=== PATIENT | female | born 1950 | race Caucasian/White ===

== ENCOUNTER 2019-05-17 13:13 | Emergency (ER) | payer MEDICARE, MEDICAID, SELFPAY ==
[2019-05-17 13:29] VITALS: BP 144/72; PULSE 80; RESP 20; TEMP 37.5; O2SAT 97
--- NOTE | 2019-05-17 13:39 | ED.GENADULT ---
HPI - General Adult General Chief complaint: Urogenital-Female Stated complaint: POS UTI Time Seen by Provider: 05/17/19 13:39 Source: patient and RN notes reviewed Mode of arrival: ambulatory Limitations: no limitations History of Present Illness HPI narrative: 68-year-old female presents with urinary complaints with intermittent RT lower back pain that radiates into RT lower abdomen for 1 day. Dysuria burning, frequency, and urgency.? No treatment.? Denies fever or chills.? Denies nausea, vomiting, and abdominal pain.? No significant pelvic pain.? No vaginal discharge.? No concerns for STDs.? Postmenopausal.? No flank pain.? Exacerbating factors urinating.? Denies hematuria or vaginal bleeding.? Tolerating liquids well.? Remains active. Some parts of this dictation were generated by voice recognition software and may contain typographical and/or grammatical inaccuracies. Related Data Home Medications Medication Instructions Recorded Confirmed escitalopram oxalate 10 mg PO DAILY 05/17/19 05/17/19 ezetimibe 10 mg PO DAILY 05/17/19 05/17/19 meloxicam 7.5 mg PO BID 05/17/19 05/17/19 omeprazole 20 mg PO DAILY 05/17/19 05/17/19 Allergies Allergy/AdvReac Type Severity Reaction Status Date / Time amoxicillin Allergy Unknown Anaphylactic Verified 05/17/19 13:47 Shock Review of Systems Review of Systems: Narrative: CONSTITUTIONAL: Denies fever, chills, sweats. EYES: Denies visual changes, redness, discharge. ENT: Denies rhinorrhea, congestion, sore throat, otalgia. CARDIOVASCULAR: Denies chest pain, palpitations, edema. RESPIRATORY: Denies dyspnea, wheezing, cough. GASTROINTESTINAL: Intermittent RT lower abdominal pain. Denies nausea, vomiting, diarrhea. GENITOURINARY: Complains of dysuria (burning, frequency, and urgency). Denies hematuria, abnormal discharge. SKIN: Denies rash or itching. MUSCULOSKELETAL: Complains of Intermittent RT lower back. Denies joint pain, or myalgia. NEUROLOGIC: Denies numbness or focal weakness. PSYCHIATRIC: Denies anxiety or depression. [facility] Past Medical History Medical History (Updated 05/17/19 @ 14:04 by BETHANY Ace) Arthritis Depression History of gastroesophageal reflux (GERD) Hyperlipidemia Surgical History Surgical History (Updated 05/17/19 @ 14:06 by BETHANY Ace) History of cholecystectomy Comments At time of signature, agree with nurse past medical, surgical, social, and family history.? There is no relevant family history pertinent to the presenting complaint. Exam Narrative: Exam Narrative: GENERAL: This is a well-nourished, well-developed patient, in no apparent distress.? Talks in full sentences and ambulates with steady gait without dyspnea. HEAD: normocephalic, atraumatic. EYES: PERRL. Sclera clear/white. Vision is grossly intact. CARDIOVASCULAR: Regular rate and rhythm without murmurs, gallops, or rubs. RESPIRATORY: Clear to auscultation. Breath sounds equal bilaterally. No wheezes, rales, or rhonchi.? GASTROINTESTINAL: Abdomen soft, no significant abdominal tenderness, nondistended. Bowel sounds are active. No hepato-splenomegaly, or palpable masses. No guarding. SKIN: warm, intact with no suspicious lesions or rash, No Purpura or Ecchymosis, good texture and turgor. NEURO: awake, alert, and oriented to person, place and time. There were no obvious focal neurologic abnormalities.? EXTREMITIES: No clubbing, cyanosis, or edema. BACK: Nontender without deformity or crepitance. Mild RT flank tenderness with palpitation. [place] Coma Scale Eye Opening:? Spontaneous 4 Adrian Coma Scale Motor:? Obeys Commands 6 Adrian Coma Scale Verbal:? Oriented 5 Course Vital Signs Vital signs: Vital Signs Temperature 37.5 C 05/17/19 13:29 Pulse Rate 80 05/17/19 13:29 Respiratory Rate 20 05/17/19 13:29 Blood Pressure 144/72 H 05/17/19 13:29 Pulse Oximetry 97 05/17/19 13:29 Temperature 37.5 C 05/17/19 13:29 Pulse Rate 80
== END 2019-05-17 13:57 | disposition home or self-care (01) ==
PROVIDERS: Emergency Provider Nurse Practitioner Family; PCP Nurse Practitioner Family
DX: R30.0 Dysuria (principal); M19.90 Unspecified osteoarthritis, unspecified site; F32.9 Major depressive disorder, single episode, unspecified; K21.9 Gastro-esophageal reflux disease without esophagitis; E78.5 Hyperlipidemia, unspecified; E78.00 Pure hypercholesterolemia, unspecified
CPT/HCPCS: 81003; 87086; 99213; G0463

== ENCOUNTER 2019-09-18 11:48 | Outpatient (CLI) | payer MEDICARE, MEDICAID, SELFPAY ==
--- NOTE | ~2019-09-18 | XR_ITS ---
XR lumbar spine 2-3V DATE: 09/18/2019 12:25 INDICATION: Low back pain, left knee pain TECHNIQUE: AP, lateral, coned lateral lumbosacral views COMPARISON: None FINDINGS: There is severe degenerative disc disease at L1-2. There is moderate degenerative disc dise ase at L5-S1. There is grade 1 anterolisthesis at L3-4. No fracture or bone destruction is evident. Included lower thoracic and lumbar pedicles are intact. There is levoscoliosis of the thoracolumbar spine. The sacroiliac joints are intact. Abdominal aortic and iliac artery calcifications Status post cholecystectomy. IMPRESSION: Degenerative change including severe degenerative disc disease at L1-2 in particular Grade 1 anterolisthesis at L3-4 Reviewed, dictated and finalized at location A. IMPRESSION: Degenerative change including severe degenerative disc disease at L 1-2 in particular Grade 1 anterolisthesis at L3-4
--- NOTE | ~2019-09-18 | XR_ITS ---
EXAMINATION: XR hip LT min 2V DATE: 09/18/2019 12:25 INDICATION: Left hip pain. TECHNIQUE: 3 views of left hip were obtained. COMPARISON: None. FINDINGS: There is levocurvature of lumbar spine. No fracture. Left hip joint space is normal. IMPRESSION: 1. Normal left hip. Reviewed, dictated and finalized at location A. IMPRESSION: 1. Normal left hip.
--- NOTE | ~2019-09-18 | XR_ITS ---
EXAMINATION: XR knee LT min 4V DATE: 09/18/2019 12:25 INDICATION: Left knee pain. TECHNIQUE: 4 views of left knee were obtained. COMPARISON: Left knee radiographs 10/25/2014 FINDINGS: Bone alignment is normal. No fracture. There is mild tricompartmental osteoarthritis. There is a small knee joint effusion. There is a 7 mm loose body in the knee joint posteriorly. IMPRESSION: 1. Mild left knee osteoarthritis. 2. Small left knee joint effusion with loose body. Reviewed, dictated and finalized at location A.
== END 2019-09-18 11:49 | disposition home or self-care (01) ==
PROVIDERS: PCP Nurse Practitioner Family; Visit Provider Nurse Practitioner Family
DX: M17.12 Unilateral primary osteoarthritis, left knee (principal); Z90.49 Acquired absence of other specified parts of digestive tract; M25.462 Effusion, left knee
CPT/HCPCS: 72100; 73502; 73564

== ENCOUNTER 2020-10-12 12:45 | Emergency (ER) | payer MEDICARE, MEDICAID, SELFPAY ==
--- NOTE | 2020-10-12 13:07 | PC.NURSE ---
Patient walked out of ED without difficulty reports that she can just come back later.
== END 2020-10-13 04:42 | disposition left against medical advice (07) ==
PROVIDERS: PCP Nurse Practitioner Family
DX: Z53.21 Procedure and treatment not carried out due to patient leaving prior to being seen by health care provider (principal)
CPT/HCPCS: 99199

== ENCOUNTER 2020-10-12 13:22 | Emergency (ER) | payer MEDICARE, MEDICAID, SELFPAY ==
[2020-10-12 13:35] VITALS: BP 151/64; PULSE 66; RESP 17; TEMP 37; O2SAT 96
--- NOTE | 2020-10-12 13:36 | ED.FEMALEGU ---
HPI - Female Genitourinary General Chief complaint: Urogenital-Female Stated complaint: uti Time Seen by Provider: 10/12/20 13:36 Source: patient Mode of arrival: ambulatory History of Present Illness HPI Narrative: Patient presents with burning with urination and low back pain for the past 4 days. Patient was started on Septra for UTI yesterday by her primary care provider. Patient presents today because she woke up with joint pain. Patient denies any fever no abdominal pain no back pain no gross hematuria no flank pain. Patient states she mowed the yard last week but has not done any new activities or any new workout routines. Patient denies any falls. Patient states she did take a niacin for the first time last night and wonders if the symptoms are related to niacin. Patient denies any shortness of breath and no chest pain. Patient states she does have arthritis and wonders if she triggered her arthritis when she mowed the grass. Related Data Home Medications Medication Instructions Recorded Confirmed escitalopram oxalate 10 mg PO DAILY 05/17/19 05/17/19 ezetimibe 10 mg PO DAILY 05/17/19 05/17/19 omeprazole 20 mg PO DAILY 05/17/19 05/17/19 propranolol 20 mg PO DAILY 10/12/20 10/12/20 Allergies Allergy/AdvReac Type Severity Reaction Status Date / Time amoxicillin Allergy Severe Anaphylactic Verified 10/12/20 13:43 Shock Review of Systems Review of Systems: Narrative: CONSTITUTIONAL: Denies fever, chills, or sweats. EYES: Denies visual changes, redness, or discharge. ENT: Denies rhinorrhea, congestion, sore throat, or otalgia. CARDIOVASCULAR: Denies chest pain, palpitations, or edema. RESPIRATORY: Denies cough or dyspnea. GASTROINTESTINAL: Denies abdominal pain, nausea, vomiting, or diarrhea. GENITOURINARY: Denies dysuria or hematuria. SKIN: Denies rash or itching. MUSCULOSKELETAL: Denies back pain, joint pain, or myalgia. NEUROLOGIC: Denies headache, numbness, or weakness. PSYCHIATRIC: Denies anxiety or depression. [facility] Past Medical History Medical History (Updated 10/12/20 @ 14:07 by BETHANY [place]) Arthritis Depression History of gastroesophageal reflux (GERD) Hyperlipidemia Surgical History Surgical History (Updated 05/17/19 @ 14:06 by BETHANY Ace) History of cholecystectomy Social History Social History Gender identity (if verbalized by the patient): Female Comments At time of signature, agree with nursing past medical, surgical, social and family history. There is no relevant family history pertinent to the presenting complaint Exam Narrative: Exam Narrative: GENERAL: Well-appearing, well-nourished, and in no acute distress. HEAD: Normocephalic, atraumatic. EYES: PERRLA and EOMI. ENT: Nares clear, no rhinorrhea or epistaxis. Mucous membranes moist. NECK: Supple. CHEST: Clear to auscultation. No respiratory distress. HEART: Regular rate and rhythm. No murmur heard. Normal peripheral pulses. ABDOMEN: Soft, nontender, nondistended, normal active bowel sounds. EXTREMITIES: Normal range of motion. No edema. SKIN: Warm, dry, no rash. NEURO: No focal deficits. Alert and oriented x3. SPEECH IS CLEAR. NO LANGUAGE DEFICITS. CRANIAL NERVES: PUPILS EQUAL, ROUND, AND REACTIVE TO LIGHT. VISUAL GUNDERSON FULL. EXTRA-OCULAR MOVEMENTS INTACT. NO NYSTAGMUS NOTED. FACIAL SENSATION INTACT TO LIGHT TOUCH. FACIAL MOVEMENT FULL AND SYMMETRIC. PALATE MIDLINE. TONGUE MIDLINE, MOVING EQUALLY IN BOTH DIRECTIONS. UVULA IS MIDLINE. SHOULDER SHRUG EQUAL ON BOTH SIDES. BILATERAL HAND GRASP 5/5. GAIT NORMAL. HEEL TO TOE AND TANDEM WALK NORMAL. FINGER TO NOSE NORMAL. NEG ROMBERG. Adrian Coma Scale Eye Opening: Spontaneous 4 [place] Coma Scale Motor: Obeys Commands 6 [place] Coma Scale Verbal: Oriented 5 [place] Coma Scale Total 15 Course Vital Signs Vital signs: Vital Signs Temperature 37.0 C 10/12/20 13:35 Pulse Rate 66 10/12/20 13:35 Respiratory Rate 17 10/12/20 13:35 Bloo
== END 2020-10-12 14:20 | disposition home or self-care (01) ==
PROVIDERS: Emergency Provider Nurse Practitioner Family; PCP Nurse Practitioner Family
DX: N39.0 Urinary tract infection, site not specified (principal); M19.90 Unspecified osteoarthritis, unspecified site; K21.9 Gastro-esophageal reflux disease without esophagitis; R78.5 Finding of other psychotropic drug in blood; F32.9 Major depressive disorder, single episode, unspecified
CPT/HCPCS: 81003; 87086; 99213; G0463

== ENCOUNTER 2020-10-15 13:56 | Outpatient (CLI) | payer MEDICARE, MEDICAID, SELFPAY ==
--- NOTE | 2020-10-15 | ECHO_ITS ---
Patient Info Name: Belkis Bradshaw Age: 70 years : 1950 Gender: Female Ht: 64 in Wt: 178 lbs BSA: 1.94 m2 BP: 158 / 83 mmHg Heart Rhythm: Bradycardia, Sinus Rhythm Technical Quality: Good Exam Date: 10/15/2020 2:25 PM Exam Location: [facility] Pulmonary Patient Status: Outpatient Admit Date: 10/15/2020 Staff Ordering Physician: Alyx, Tiki FRANKLIN Surety Bond Agent: Ced Perdomo RDCS, RT Attending Provider: Alyx, Tiki FRANKLIN Referring Physician: Alyx BAIRES; Exam Type: CA echo doppler color flow Study Info Indications R01.1 - Cardiac murmur, unspecified Complete two-dimensional, color flow and Doppler transthoracic echocardiogram is performed. Strain analysis performed. Summary 1. Complete two-dimensional, color flow and Doppler transthoracic echocardiogram is performed. 2. There is no aortic valve stenosis with a peak velocity of 171 cm/s, mean gradient of 6 mmHg, and aortic valve area of 2.1 cm2. 3. Left ventricular chamber dimension is normal. 4. Left ventricular systolic function is normal, estimated at 65-70%. 5. There is mildly increased left ventricular wall thickness. 6. The left ventricular diastolic function is grade I diastolic dysfunction. 7. There is mild aortic valve regurgitation. 8. Unable to estimate PA systolic pressure due to poor spectral resolution of tricuspid regurgitant jet velocity. Left Ventricle Left ventricular chamber dimension is normal. Left ventricular systolic function is normal, estimated at 65-70%. There is mildly increased left ventricular wall thickness. The left ventricular diastolic function is grade I diastolic dysfunction. Right Ventricle Right ventricular chamber dimension is normal. Right ventricular systolic function is normal. Left Atria Left atrial chamber dimension is normal. Right Atria Right atrial chamber dimension is normal. Atrial Septum Thin and hypermobile. Aortic Valve There is no aortic valve stenosis with a peak velocity of 171 cm/s, mean gradient of 6 mmHg, and aortic valve area of 2.1 cm2. The aortic valve is trileaflet. There is no aortic valve stenosis. There is mild aortic valve regurgitation. There is mild aortic valve calcification. Pulmonic Valve The pulmonic valve is not well visualized. Mitral Valve The mitral valve has normal leaflets. There is trace mitral valve regurgitation. The mitral valve annulus is mildly calcified. Tricuspid Valve The tricuspid valve leaflets are normal. There is trace tricuspid valve regurgitation. Unable to estimate PA systolic pressure due to poor spectral resolution of tricuspid regurgitant jet velocity. Pericardium/Pleural The pericardium appears normal. There is no pericardial effusion. Inferior Vena Cava Normal inferior vena cava with >50% collapse upon inspiration consistent with normal right atrial pressure, 5 mmHg. Aorta The aortic root size at the sinus of Valsalva is normal. Left Ventricular Outflow Tract Name Value Normal LVOT 2D LVOT Diameter 2.0 cm LVOT Doppler LVOT Peak Gradient 4 mmHg LVOT Mean Gradient
== END 2020-10-15 13:57 | disposition home or self-care (01) ==
PROVIDERS: PCP Nurse Practitioner Family; Visit Provider Nurse Practitioner Family
DX: R01.1 Cardiac murmur, unspecified (principal); I35.1 Nonrheumatic aortic (valve) insufficiency
CPT/HCPCS: 93306

== ENCOUNTER → 2020-11-08 17:21 | Outpatient (CLI) | payer MEDICARE, MEDICAID, SELFPAY ==
--- NOTE | ~2020-11-08 | MM_ITS ---
EXAMINATION: MM screening [place] BI w natalie HISTORY: Screening mammogram TECHNIQUE: Craniocaudal and mediolateral oblique 3-D tomosynthesis images were obtained and synthetic 2-D images were generated. CAD analysis was submitted and interpreted. COMPARISON: 11/05/2014 bilateral digital screening mammogram BREAST PARENCHYMAL COMPOSITION: There are scattered areas of fibroglandular density. FINDINGS: Scattered bilateral benign calcifications. There is no evidence of suspicious mass, calcifi cation, or architectural distortion to suggest malignancy in either breast. There has been no suspici ous interval change. IMPRESSION: 1. No mammographic evidence of malignancy. 2. Recommend routine screening mammography in one year. BI-RADS Category 2: Benign finding(s). Reviewed, dictated and finalized at location A.
== END ==
PROVIDERS: PCP Nurse Practitioner Family; Visit Provider Nurse Practitioner Family
DX: Z12.31 Encounter for screening mammogram for malignant neoplasm of breast (principal)
CPT/HCPCS: 77063; 77067

== ENCOUNTER 2021-08-15 18:40 | Emergency (ER) | payer OTHER, SELFPAY ==
[2021-08-15 18:59] VITALS: BP 116/76; PULSE 78; RESP 17; TEMP 37.2; O2SAT 96
--- NOTE | 2021-08-15 19:25 | ED.FEMALEGU ---
HPI - Female Genitourinary General Chief complaint: Urogenital-Female Stated complaint: uti complaint Source: patient Mode of arrival: ambulatory Limitations: no limitations History of Present Illness HPI Narrative: 70-year-old female presents to [facility] with complaints of urinary incontinence, urinary frequency, urgency, pain and burning with lower abdominal pressure for the past 3 to 4 days. Patient reports that she has a history of urinary tract infection and her symptoms feel similar. Patient denies fevers, vaginal discharge, nasuea, vomiting or diarrhea MD elicited complaint: dysuria and UTI Onset (ago): day(s) (3) Vaginal discharge: none Vaginal bleeding: none Urinary symptoms: Dysuria, Urgency and Frequency Exacerbating factors: none Relieving factors: none Patient : No Related Data Home Medications Medication Instructions Recorded Confirmed carbidopa-levodopa tablet 08/15/21 escitalopram oxalate mg 08/15/21 ezetimibe mg 08/15/21 omeprazole 08/15/21 propranolol 08/15/21 Allergies Allergy/AdvReac Type Severity Reaction Status Date / Time amoxicillin Allergy Severe Anaphylactic Verified 10/12/20 13:43 Shock sulfamethoxazole Allergy Unknown Verified 08/15/21 19:13 [From Bactrim] trimethoprim [From Bactrim] Allergy Unknown Verified 08/15/21 19:13 Review of Systems Constitutional: Constitutional: Denies chills Cardiovascular: Cardiovascular: Denies chest pain Respiratory: Respiratory: Denies cough and Denies dyspnea Gastrointestinal: Gastrointestinal: Denies constipation, Denies diarrhea, Denies nausea and Denies vomiting Genitourinary: Genitourinary: Reports nocturia, Reports dysuria and Reports urinary incontinence Integumentary/Breasts: Skin/Breast: Denies rash PMFSH Past Medical History Medical History Arthritis Depression History of gastroesophageal reflux (GERD) Hyperlipidemia Surgical History Surgical History History of cholecystectomy Social History Social History Gender identity (if verbalized by the patient): Female Comments At time of signature, I agree with nursing past medical, surgical, social and family history. There is no relevant family history pertinent to the presenting complaint. Exam Const: General: no acute distress Nutritional Appearance: well nourished Orientation/consciousness: patient oriented x3 Neck: Neck: normal visual inspection Resp: Effort & Inspection: normal respiratory effort, not labored and not tachypneic Auscultation: clear to auscultation bilaterally Cardio: Rate: regular rate Rhythm: regular rhythm GI: Inspection: non-distended GI Palp: Yes Soft to palpation, Yes Tenderness to palpation present (GI) (Mild tenderness noted to suprapubic region upon palpation) and No Rigid due to palpation Auscultation: normal bowel sounds : General: Yes bladder normal to palpation and Yes no CVA tenderness Back/Spine/Pelvis: Back: no CVA tenderness Skin: Rashes: no rashes Wounds: no wounds Neuro: General: patient oriented x3 and moves all extremities Speech: normal speech Psych: Mental Status: mental status grossly normal Affect: normal affect Attitude: cooperative Thought content: Yes Normal thought content present Course Course Level of Care: Express Care Visit Vital Signs Vital signs: Vital Signs Temperature 37.2 C 08/15/21 18:59 Pulse Rate 78 08/15/21 18:59 Respiratory Rate 17 08/15/21 18:59 Blood Pressure 116/76 08/15/21 18:59 Pulse Oximetry 96 08/15/21 18:59 Temperature 37.2 C 08/15/21 18:59 Pulse Rate 78 08/15/21 18:59 Respiratory Rate 17 08/15/21 18:59 Blood Pressure 116/76 08/15/21 18:59 Pulse Oximetry 96 08/15/21 18:59 MDM - Female Genitourinary MDM Narrative Medical decision making narrati
== END 2021-08-15 19:34 | disposition home or self-care (01) ==
PROVIDERS: Emergency Provider Nurse Practitioner Family; PCP Nurse Practitioner Family
DX: N39.0 Urinary tract infection, site not specified (principal); E78.5 Hyperlipidemia, unspecified; K21.9 Gastro-esophageal reflux disease without esophagitis
CPT/HCPCS: 81003; 87086; 99213; G0463

== ENCOUNTER 2024-01-18 09:48 | Outpatient (CLI) | payer MEDICARE, SELFPAY ==
--- NOTE | 2024-01-18 | ECHO_ITS ---
Patient Info Name: Belkis Bradshaw Age: 73 years : 1950 Gender: Female Ht: 64 in Wt: 180 lbs BSA: 1.95 m2 HR: 49 bpm BP: 177 / 85 mmHg Technical Quality: Good Exam Date: 01/18/2024 10:56 AM Exam Location: Echo Lab Patient Status: Outpatient Admit Date: 01/18/2024 Staff Ordering Physician: Maritza Montenegro APRN Tare Weigher: Raven Walden RDCS Attending Provider: LanMaritza Exam Type: CA echo doppler color flow Study Info Indications R00.1 - Bradycardia, unspecified E78.5 - Hyperlipidemia, unspecified I10 - Essential (primary) hypertension Complete two-dimensional, color flow and Doppler transthoracic echocardiogram is performed. Strain analysis performed. Summary 1. Complete two-dimensional, color flow and Doppler transthoracic echocardiogram is performed. 2. The left ventricular size and systolic function is normal. LVEF is estimated to be 60-65% with normal wall motion. There is grade 1 diastolic dysfunction. 3. The right ventricular size and systolic function is normal. 4. The aortic valve is trileaflet and calcified. There is mild aortic regurgitation. There is mild aortic stenosis. Left Ventricle The left ventricular size and systolic function is normal. LVEF is estimated to be 60-65% with normal wall motion. There is grade 1 diastolic dysfunction. Global strain is borderline at -16.8%. Right Ventricle The right ventricular size and systolic function is normal. Left Atria Left atrial chamber dimension is normal. Right Atria Right atrial chamber dimension is normal. Aortic Valve The aortic valve is trileaflet and calcified. There is mild aortic regurgitation. There is mild aortic stenosis. Pulmonic Valve The pulmonic valve is not well visualized. There is trivial pulmonic valve regurgitation. Mitral Valve Mitral valve is sclerotic. There is trivial mitral regurgitation. Tricuspid Valve The tricuspid valve is normal. There is trivial tricuspid regurgitation. Inferior Vena Cava Normal inferior vena cava with <50% collapse upon inspiration consistent with elevated right atrial pressure, 10 mmHg. Aorta Aortic root measures at level of the sinus of Valsalva is normal in diameter measuring 2.7 cm. Left Ventricular Outflow Tract Name Value Normal LVOT 2D LVOT Diameter 1.9 cm LVOT Doppler LVOT Peak Gradient 5 mmHg LVOT Mean Gradient 2 mmHg LVOT VTI 30 cm LVOT VTI/AV VTI Ratio 0.6 LVOT Stroke Volume 85 ml LVOT CO 3.7 l/min LVOT CI 1.9 l/min/m2 Pulmonic Valve Name Value Normal RVOT Doppler RVOT Peak Gradient 3 mmHg PV Doppler PV Peak Gradient 5 mmHg Mitral Valve
--- NOTE | ~2024-01-18 | US_ITS ---
EXAMINATION: US retroperitoneal duplex ltd DATE: 01/18/2024 10:50 INDICATION: hypertension TECHNIQUE: Multiple grayscale, color Doppler, and pulsed Doppler images of the kidneys and renal bert jeannine were obtained. COMPARISON: None. FINDINGS: The aorta peak systolic velocity is 102 cm/s. The right renal artery peak systolic velocity is 146 cm /s in the proximal segment, 119 cm/s in the mid segment, and 153 cm/s in the distal segment. The left renal artery peak systolic velocity is 136 cm/s in the proximal segment, 96 cm/s in the mid segment, and 87 cm/s in the distal segment. The right kidney measures 10.7 x 3.9 x 4.7 cm with normal echogen icity and contour and with no hydronephrosis. The left kidney measures 10.5 x 4.6 x 4.8 cm also with normal echogenicity and contour and no hydronephrosis. IMPRESSION: 1. No Doppler evidence of renal artery stenosis. Reviewed, dictated and finalized at location A.
== END 2024-01-18 09:49 | disposition home or self-care (01) ==
PROVIDERS: PCP Nurse Practitioner Family
DX: R00.1 Bradycardia, unspecified (principal); I10 Essential (primary) hypertension; E78.5 Hyperlipidemia, unspecified; M19.90 Unspecified osteoarthritis, unspecified site
CPT/HCPCS: 93306; 93976

== ENCOUNTER 2024-11-08 07:07 | Outpatient (CLI) | payer MEDICARE, SELFPAY ==
--- NOTE | ~2024-11-08 | MR_ITS ---
EXAMINATION: MR hip LT wo con DATE: 11/08/2024 08:09 INDICATION: Left hip trochanteric bursitis TECHNIQUE: Magnetic resonance imaging (MRI) of the left hip was performed without intravenous contra st. Sequences included full-field axial PD-weighted FS FSE and T1-weighted FSE, coronal of the pelvis with PD-weighted FS FSE, small field of view of the left hip with axial PD-weighted FS FSE, sagitta l PD-weighted FS FSE and coronal PD weighted FS FSE. Additional radial T1-weighted FGR oriented ortho gonal to the acetabular rim were obtained for evaluation of the labrum. COMPARISON: None FINDINGS: Bones/labrum/cartilage: Mild lumbar levocurvature with severe disc height loss at L5-S1 and mild spondylosis and more cephala d lumbar spine. T1 hyperintense hemangioma at L4. Marrow signal is otherwise normal with no fracture, avascular necrosis or pathologic marrow replacing process. Diffuse tear of the anterior to posterior left acetabular labrum. Mild left hip osteoarthritis with posterior and posterior predominant partia l-thickness cartilage loss with mild to moderate nonuniform joint space narrowing. Fluid: Symmetric physiologic amount of fluid within both hip joints. Small fluid collection at the left grea ter trochanteric bursa with additional mild increased fluid signal at the left gluteus medius bursa c onsistent with bursitis. No free fluid in the pelvis or other abnormal fluid collections. Soft tissues: Normal and symmetric muscle bulk and signal in the pelvis and visualized proximal thighs. The iliopso as and proximal hamstring tendons are normal. Mild left gluteus medius tendinopathy with very partial -thickness tear along the deep lateral facet footplate of the tendon. Remaining bilateral gluteus ten dons are normal. Limited evaluation of visceral organs of the pelvis is unremarkable. Normal appendix . No pathologically enlarged pelvic/inguinal lymphadenopathy. IMPRESSION: 1. Mild left hip osteoarthritis with diffuse labral tear. 2. Mild left gluteus medius and greater trochanteric bursitis with mild tendinopathy and small partia l-thickness tear of the distal left gluteus medius tendon. Reviewed, dictated and finalized at location A. IMPRESSION: 1. Mild left hip osteoarthritis with diffuse labral tear. 2. Mild left gluteus medius and greater trochanteric bursitis with mild tendino mary ann and small partial-thickness tear of the distal left gluteus medius tendon .
--- OUTSIDE RECORDS SUMMARY | 2024-11-08 07:10 | XMS_ITS | Data Portability ---
Author Organization [facility] Address [address] [place] [address] Assessment No assessment recorded. Plan of Treatment Reminders Order Date Submit Date Provider Last Modified By Organization Details Last Modified Time Details Appointments None recorded. Lab pap, IG + HPV, cervical 2015 [facility]16 [facility], [address] [place] [address], [address], [place], [address], 6 14:32:18 bacterial vaginosis + vaginitis panel, vaginal 2015 016 [facility], [address] [place] [address], [address], [place], [address], 6 20:10:42 HSV (1+2) DNA, qual, PCR, unspecified specimen 2015 016 [facility], [address] [place] [address], [address], [place], [address], 6 20:10:43 urinalysis, dipstick 2015 016 [email or web address] In-Office Order, Internal Use Only DO Not Attach Compendium DO Not Attach Compendium, Do Not Delete/merge, [id number] 6 12:14:43 Referral None recorded. Procedures None recorded. Surgeries None recorded. Imaging None recorded. Medication Orders None recorded. Patient TargetsNo targets recorded. Patient InstructionsNo instructions recorded. Reason for Referral None Reported. Results Created Date Observation Date Name Description Value Unit Range Abnormal Flag Note LastModifiedBy Organization Detail LastModifiedTime 05/23/19 16 05/23/2015 urina lysis , dipst ick Leukocytes Small Not Available In-Offi ce Order Internal Use Only DO Not Attach Compendium DO Not Attach Compendium, Do Not Delete/merge, [id number] 05/23/2015 16:37:36 05/23/19 16 05/23/2015 urina lysis , dipst ick Nitrite negati ve Not Available In-Office Order Internal Use Only DO Not Attach Compendium DO Not Attach Compendium, Do Not Delete/merge, [id number] 05/23/2015 16:37:36 05/23/1905/23/2015 urina lysis , dipst ick Urobilinogen 1 Not Available In-Of fice Order Internal Use Only DO Not Attach Compendium DO Not Attach Compendium, Do Not Delete/merge, [id number] 05/23/2015 16:37:36 05/23/1905/23/2015 urina lysis , dipst ick Protein Negati ve Not Available In-Office Order Internal Use Only DO Not Attach Compendium DO Not Attach Compendium, Do Not Delete/merge, [id number] 05/23/2015 16:37:36 05/23/1905/23/2015 urina lysis , dipst ick pH 7.0 Not Available In-Office Order Internal Use Only DO Not Attach Compendium DO Not Attach Compendium, Do Not Delete/merge, [id number] 05/23/2015 16:37:36 05/23/1905/23/2015 urina lysis , dipst ick Blood Negati ve Not Available In-Office Order Internal Use Only DO Not Attach Compendium DO Not Attach Compendium, Do Not Delete/merge, 05/23/2015 16:37:36 05/23/1905/23/2015 urina lysis , dipst ick Specific [place] 1.020 Not Available In-Off ice Order Internal Use Only DO Not Attach Compendium DO Not Attach Compendium, Do Not Delete/merge, [id number] 05/23/2015 16:37:36 05/23/1905/23/2015 urina lysis , dipst ick Ketone Negati ve Not Available In-Office Order Internal Use Only DO Not Attach Compendium DO Not Attach Compendium, Do Not Delete/merge, [id number] 05/23/2015 16:37:36 05/23/19 16 05/23/2015 urina lysis , dipst ick Bilirubin Negati ve Not Available In-Office Order Internal Use Only DO Not Attach Compendium DO Not Attach Compendium, Do Not Delete/merge, [id number] 05/23/2015 16:37:36 05/23/19 16 05/23/2015 urina lysis , dipst ick Glucose Negati ve Not Available In-Office Order Internal Use Only DO Not Attach Compendium DO Not Attach Compendium, Do Not Delete/merge, [id number] 05/23/2015 16:37:36 05/23/19 16 05/23/2015 urina lysis , dipst ick Appearance Clear Not Available In-Offi ce Order Internal Use Only DO Not Attach Compendium DO Not Attach Compendium, Do Not Delete/merge, [id number] 05/23/2015 16:37:36 05/23/19 16 05/23/2015 urina lysis , dipst ick Color Yellow Not Available In-Office Order Internal Use Only DO Not Attach Compendium DO Not Attach Compendium, Do Not Delete/merge, [id number] 05/23/2015 16:37:36 05/23/19 16 05/27/2015 pap, IG + HPV, cervi latia diagnosis: COMMEN T NEGAT DOLORES FOR INTRA EPITH ELIAL LESIO N AND INES ZURITA . Not Available [facility] ([facility]) [address] [facility], [place], [address], 05/27/2015 14:32:18 05/23/19 16 05/27/2015 pap, IG + HPV, cervi latia specimen adequacy: COMMEN T SATIS FACTO RY FOR EVALU ATION . ENDOC ERVIC AL AND/O R SQUAM OUS METAP LASTI C CELLS (ENDO CERVI LATIA COMPO NENT) ARE PRESE NT. Not Available [facility] ([facility]) [address] [facility], [place], [address], 05/27/2015 14:32:18 05/23/19 16 05/27/2015 pap, IG + HPV, cervi latia clinician provided ICD10: UMU Broderick Z01.4 19 Not Available [facility] ([facility]) [address] [place], [address], 05/27/2015 14:32:18 05/23/19 16 05/27/2015 pap, IG + HPV, cervi latia performed by: UMU JUNG, CYTOMeggan Broderick (ASCP ) Not Available [facility] ([facility]) [address] [place], [address], 05/27/2015 14:32:18 05/23/19 16 05/27/2015 pap, IG + HPV, cervi latia . . Not Available [facility] ([facility]) [address] [place], [address], 05/27/2015 14:32:18 05/23/19 16 05/27/2015 pap, IG + HPV, cervi latia note: UMU Broderick THE PAP SMEAR IS A SCREE RONNI TEST DESIG CHUYITA TO AID IN THE DETEC TION OF FRITZ LIGNA NT AND MALIG NANT CONDI TIONS OF THE UTERI NE CERVI X. IT IS NOT A DIAGN OSTIC PROCE DURE AND SHOUL D NOT BE USED THE SOLE MEANS OF DETEC TING CERVI LATIA CANCE R. BOTH FALSE -POSI TIVE AND FALSE -NEGA TIVE REPOR TS DO OCCUR . Not Available [facility] ([facility]) [address] [place], [address], 05/27/2015 14:32:18 05/23/1905/27/2015 pap, IG + HPV, cervi latia test methodology: UMU Broderick THIS LIQUI D BASED THINP REP(R ) PAP TEST WAS SCREE CHUYITA WITH THE USE OF AN IMAGE GUIDE Suhail Foley Not Available [facility] ([facility]) [address] [place], [address], 05/27/2015 14:32:18 05/23/19 16 05/27/2015 pap, IG + HPV, cervi latia HPV aptima NEGATI VE negati ve THIS TEST DETEC TS FOURT EEN HIGH- RISK HPV TYPES (16/1 8/31/ 33/35 /39/4 5/ 51/52 /56/5 8/59/ 66/68 ) WITHO UT CAREYE ROSLYN ATION . Not Available [facility] ([facility]) [address] [place], [address], 05/27/2015 14:32:18 05/23/19 16 05/26/2015 bacte rial vagin osis + vagin itis panel , vagin al trich vag by COREY NEGATI VE negati ve Not Available [facility] ([facility]) [address] [place], [address], 05/27/2015 20:10:42 05/23/19 16 05/26/2015 bacte rial vagin osis + vagin itis panel , vagin al chlamydia trachomatis, COREY NEGATI VE negati ve Not Available [facility] ([facility]) [address] [place], [address], 05/27/2015 20:10:42 05/23/19 16 05/26/2015 bacte rial vagin osis + vagin itis panel , vagin al neisseria gonorrhoeae, COREY NEGATI VE negati ve Not Available [facility] ([facility]) [address] [place], [address], 05/27/2015 20:10:42 05/23/19 16 05/27/2015 bacte rial vagin osis + vagin itis panel , vagin al atopobium vaginae LOW - 0 score Not Available [facility] ([facility]) [address] [place], [address], 05/27/2015 20:10:42 05/23/19 16 05/27/2015 bacte rial vagin osis + vagin itis panel , vagin al bvab 2 LOW - 0 score Not Available [facility] ([facility]) [address] [place], [address], 05/27/2015 20:10:42 05/23/19 16 05/27/2015 bacte rial vagin osis + vagin itis panel , vagin al megasphaera 1 LOW - 0 score CALCU LATE TOTAL SCORE BY TUSHAR Brandt THE 3 INDIV IDUAL BACTE RIAL VAGIN OSIS (BV) MARKE R SCORE S TOGET HER. TOTAL SCORE IS INTER PRETE D FOLLO WS: TOTAL SCORE 0-1: INDIC ATES THE ABSEN CE OF BV. TOTAL SCORE 2: INDET ERMIN ATE FOR BV. ADDIT IONAL CLINI LATIA DATA SHOUL D BE EVALU ATED TO ESTAB JANETTE A DIAGN OSIS. TOTAL SCORE 3-6: INDIC ATES THE PRESE NCE OF BV. THIS TEST WAS DEVEL OPED AND ITS PERFO RMANC E GEORGIE CTERI STICS DETER MINED BY [employer]. IT HAS NOT BEEN CLEAR ED OR APPRO RAJAT BY THE FOOD AND DRUG ADMIN ISTRA TION. THE FDA HAS DETER MINED THAT SUCH CLEAR ANCE OR APPRO KWADWO IS NOT NECES ANTOINETTE. Not Available [facility] ([facility]) [address] [facility], [place], [address], 05/27/2015 20:10:42 05/23/19 16 05/27/2015 bacte rial vagin osis + vagin itis panel , vagin al ira albicans, COREY NEGATI VE negati ve Not Available [facility] ([facility]) [address] [place], [address], 05/27/2015 20:10:42 05/23/19 16 05/27/2015 bacte rial vagin osis + vagin itis panel , vagin al ira glabrata, COREY NEGATI VE negati ve THIS TEST WAS DEVEL OPED AND ITS PERFO RMANC E GEOR[place]IE CTERI STICS DETER MINED BY [employer] RP. IT HAS NOT BEEN CLEAR ED OR APPRO RAJAT BY THE FOOD AND DRUG ADMIN ISTRA TION. THE FDA HAS DETER MINED THAT SUCH CLEAR ANCE OR APPRO KWADWO IS NOT NECES ANTOINETTE. Not Available [facility] ([facility]) [address] [facility], [place], [address], 05/27/2015 20:10:42 05/23/19 16 05/27/2015 HSV (1+2) DNA, qual, PCR, unspe cifie d speci men hsv 1 COREY NEGATI VE negati ve Not Available [facility] ([facility]) [address] [facility], [place], [address], 05/27/2015 20:10:43 05/23/19 16 05/27/2015 HSV (1+2) DNA, qual, PCR, unspe cifie d speci men hsv 2 COREY NEGATI VE negati ve Not Available [facility] ([facility]) [address] [facility], [place], [address], 05/27/2015 20:10:43 Result Notes None recorded. Problems No Known Problems Procedures Surgical History Date Name Laterality Status Provider Name and Address Organization Details Recorded Time 12/19/19 15 Most Recent Mammogram completed Gail Larose [place] [facility] 05/23/2015 16:22:29 04/19/19 10 Cholecystectomy completed Gail Larose [place] [facility] 05/23/2015 16:23:08 04/19/19 06 Date of Last Pap Smear completed Gail Larose [place] [facility] 05/23/2015 16:22:29 Imaging Results None recorded. Procedure Notes None recorded. Medical Equipment None Reported. Allergies Allergen ID Allergen Name Allergen Category Reaction Reaction Severity Criticality Documentation Date Start Date Code Code System Note Provider Name and Address Organization Details Recorded Time 52593 amoxicill in medicatio n other severe Not available 05/23/20152008 723 RxNorm pt state s flat- lined years ago, 7 yrs ago Gail Larose MA null, [place] [facility] 6 16:18:02 Medications Name Sig Start Date Stop Date Status Note LastModified by Organization Details LastModified Time bupropion HCl SR 150 mg tablet,12 hr sustained-rele ase active Not Available Not Available Not Available tramadol 50 mg tablet active Not Available Not Available Not Available meloxicam 7.5 mg tablet active Not Available Not Available No t Available lisinopril 10 mg tablet active Not Available Not Available No t Available mupirocin 2 % topical ointment active Not Available Not Available Not Available levofloxacin 500 mg tablet active Not Available Not Availabl e Not Available Vitals Date Recorded Body mass index (BMI) Body weight Body height Systolic And Diastolic Provider Name and Address Organization Details Last Updated DateTime 05/23/2015 29.7 kg/m2 46277.480 01 g 162.56 cm 112/84 mm[Hg] Gail Larose [place] 05/23/2015 16:33:37 Social History Question Answer Notes LastModified by Organizat ion Details LastModified Time Tobacco Smoking Status Current Every Day Smoker Gail Larose MA [facility], [facility] 05/23/2015 16:26:48 Do You Have An Advance Directive? No Information not available 05/23/2015 Is Blood Transfusion Acceptable In An Emergency? Yes Information not available 05/23/2015 What Is Your Level Of Caffeine Consumption? Heavy Information not available 05/23/2015 How Much Tobacco Do You Chew? None Information not available 05/23/2015 What Type Of Diet Are You Following? REGULAR Information not available 05/23/2015 Education 9 Information no t available 05/23/2015 Live Alone Or With Others? With Others Information not available 05/23/2015 How Many Children Do You Have? 2 Information not available 05/23/2015 Performs Monthly Self-breast Exam? Yes Information no t available 05/23/2015 Do You Use Protection During Sex? No Information not available 05/23/2015 What Is Your Relationship Status? Information not available 05/23/2015 Seat Belts Used Routinely Yes Information not available 05/23/2015 Are You Sexually Active? Yes Information not available 05/23/2015 At What Age Did You Start Smoking Tobacco? 23 Information not available 05/23/2015 How Much Tobacco Do You Smoke? 1 PPD Information not available 05/23/2015 General Stress Level Medium Information not available 05/23/2015 Do You Use Sunscreen Routinely? No Information not available 05/23/2015 How Many Years Have You Smoked Tobacco? 41 [email or web address] Information not available 05/23/2015 Sex: Unknown Functional Status Question Answer Note LastModified by Organization D etails LastModified Time What is your level of alcohol consumption? None Information not available 05/23/2015 Are you currently employed? No Information not available 05/23/2015 What is your exercise level? Moderate Information not available 05/23/2015 Mental Status None recorded. Family History Relationship Description Onset Age of this Age Resolved Age Notes LastModified by Organization Details LastModified Time Mother Heart disease 83 Not available 05/23 16:24:38 Father Heart disease 93 Not available 05/23 16:24:38 Medical History Condition Response Coronary Artery Disease N Blood Diseases N Kidney Cyst N Hyperthyroidism N Blood disorders N MRSA N Blood Transfusion N Emphysema N Depression Y COPD N Blood Clots N Pneumonia N Peripheral Arterial Disease N Premature N Edema N TIA N Headaches/Migraines N Anxiety Disorder N Obesity N Polyps N Infertility N Acid Reflux (GERD) N Hematuria N Stroke N Neck Injury N Polio N Hospital Admission other than N Neurologic Disorder N Other Sleep Disorders N Rheumatoid Arthritis N Fibromyalgia N Abdominal Aortic Aneurysm Repair N Kidney Disease N Heart Conditions N Heart Disease/Heart Problems N Hospitalizations N Brain Tumors N Acne N Skin Problems N Eating Disorder N Meningitis N Constipation N Tuberculosis N Cerebral Palsy N Myocardial Infarction N Asthma N Substance Abuse N Peripheral Vascular Disease N Vertigo N Sleep Disorder N Cirrhosis N Pulmonary Embolism N Chicken Pox N Hematologic Disease N Flomax Use Past or Present N Anxiety/Depression Y Thyroid Disease N Colon Cancer N Lung Disease N Glaucoma N Developmental or Behavioral Disorders N Bipolar N Pacemaker N Diverticulitis/Diverticulosis N Orthopedic Problems N Anesthesia Complications N Orthotics N Head Injury/Concussion N Congenital Anomalies N Borden Bite N Chronic Kidney Disease N Endometriosis N Liver Disease N Schizophrenia N Dialysis N Speech Delay N Chronic Obstructive Pulmonary Disease N Parkinson's Disease N Thyroid Problems N GI Problems N Developmental Delay N Anemia N Multiple Sclerosis N Immune System Disorder N Colon Polyps N Heart Attack (ME) N Diabetes N Cardiomyopathy N Blood Transfusions N Heart Problems/Murmur N Eye Trauma N Congestive Heart Failure (CHF) N Valvular Heart Disease N Hyperlipidemia N Double Vision N Abuse/Domestic Violence N Hepatitis B N Lupus N Epilepsy/Seizures N Reflux/GERD N Aneurysm N Heart Disease N Bronchitis N Pre-Eclampsia N Hypertension Y Heart Failure N Other N Gout N High Blood Pressure Y Atrial Fibrillation N Kidney Stones N Head Trauma/Injury N Congenital Heart Disease N Spine Problems N Gastrointestinal Disease N Lung Mass N Sinusitis N Obstructive Sleep Apnea N Muscle, Joint, or Bone Problems N Autoimmune disease N Vision or Eye Problems N Arthritis N Blood Clot N Cancer N Seasonal allergies N Leg or Foot Ulcers N Raynaud's Disease N Aortic Aneurysm N Arrhythmia N Headaches N Heart Problems N Ambloypia N Ear or Hearing Problems N Hyperparathyroidism N Migraines N Artificial Joints N Kidney or Bladder Problems N NSAID Use N Encephalitis N PTSD N Ulcers N Prostate Hypertrophy N Bleeding Disorder N AIDS/HIV N Urinary Tract Infection N Back Problems N Allergies N Atrial Flutter N GERD/Reflux N Hepatitis N Autism Spectrum Disorder (ASD) N Breast Cancer N Hernia N Hypothyroidism N Breast Problem N Genitourinary Disease N Deep Vein Thrombosis N Varicose Veins N Cystic Fibrosis N Hearing Loss N Developmental Problems N Carotid Disease N Vitamin D Deficiency N ADHD N Bladder or Kidney Problems N High Cholesterol N [place] N Valvular Abnormalities N Psychiatric/Mental Health Condition N Organ Transplant N Foot Deformity N Allergies/Hayfever N Dyslipidemia N Hyponatremia N Diabetic Eye Disease N Osteoporosis/Osteopenia N Back Pain N Proteinuria N Mental Illness N Neurological Problems N Ovarian Cancer N Bedwetting N Seizures/Epilepsy N Kidney Failure N Ocular trauma N Diverticulitis N Dementia N Sleep Apnea N Mental Problems N Warfarin Management N Osteoporosis N Gynecological History Statement/Question Response Abnormal Pap N STIs/STDs N HPV Vaccine N Most Recent Mammogram 12/18/2014 Age at Menarche 14 Current Control Method Menopause Age at First Child 19 Sexually Active? Y Menses Monthly N Date of Last Pap Smear 04/19/2005 Sexual Problems? N LMP Unknown Desired Control Method None Obstetrics History GPAL:G 2 P 2 0 0 2 Type Value Multiple Births 0 Full Term 2 Induced 0 Spontaneous 0 Premature 0 Living 2 Ectopics 0 Total 2 Past Encounters Encounter ID Performer Location Encounter Start Date Encounter Closed Date Diagnosis/Indication Diagnosis SNOMED-CT Code Diagnosis ICD10 Code Diagnosis Note [id number] MD Alfredo Lyn ([employer] [address] [place] [address] 05/23/2015 15:32:44 05/23/2015 17:34:35 Gynecologic examination [id number] Z01.419 Health Concerns Section Related Observation LastModified by Organization Detai ls LastModified Time None Recorded Concern Status LastModified by Organization Details LastModified Time None Recorded Advance Directives Directive N: Payers Insurance Date Sequence Insurance Name Policy Number Policy Pickard Covered Member ID Pickard Member ID Guarantor Name 07/04/2024 1 [facility] (MEDICAID HMO) Belkis Bradshaw [id number] Belkis Bradshaw OBGyn Episode No OBEpisode recorded.
--- OUTSIDE RECORDS SUMMARY | 2024-11-08 07:10 | XMS_ITS | Clinical Summary ---
Author Organization [facility] [employer] Address [address] [place] [address] Care Team Providers Care Social Contact Worker Name Role Phone Daniel Hunter MD Primary Care Provider [phone] Source Comments [facility],non-owned Affiliates and Associated Physician Practices is amultiple site organization consisting of ambulatory clinics and hospital sitesin [place], [place], [place] and [place]. This disclosure is being madepursuant to the Care Everywhere program and may not contain all information available regarding this patient. Last updated 18.[facility] [employer] Allergies Active Allergy Reactions Criticality Noted Date Comments Amoxicillin Anaphylaxis High 08/09/2023 Patient went unconscious Medications * Be aware that medications may not be up to date on this document. Alwaysverify current medications with the patient. ALPRAZolam (Xanax) 0.25 MG tablet Take 1 (one) tablet by mouth once daily as needed 06/15/2023 Active celecoxib (CeleBREX) 200 MG capsule TAKE 1 CAPSULE BY MOUTH EVERY DAY WITH FOOD NEEDED 06/15/2023 Active escitalopram (Lexapro) 20 MG tablet Take 1 (one) tablet by mouth once daily 06/17/2023 Active omeprazole (PriLOSEC) 40 MG capsule TAKE 1 CAPSULE BY MOUTH EVERY DAY IN THE MORNING 06/15/2023 Active primidone (Mysoline) 50 MG tablet TAKE 2 TABLETS BY MOUTH TWICE DAILY 120 tablet 2 09/04/2024 Active Encounters Date Type Department Care Team Description 09/02/2024 Refill [facility] [address] [place] [address] Aakash Garcia MD Refill Request from Last 3 Months Social History Tobacco Use Types Packs/Day Years Used Date Smoking Tobacco: Never Assessed Comments Unknown Sex and Gender Information Value Date Recorded Sex Assigned at Not on file 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 Gender Identity Not on file Sexual Orientation Not on file Last Filed Vital Signs Vital Sign Reading Time Taken Comments Blood Pressure 144/74 09/07/2023 11:32 AM CDT Pulse 57 09/07/2023 11:32 AM CDT Temperature 36.3 C (97.4 F) 09/07/2023 11:32 AM CDT Respiratory Rate - - Oxygen Saturation 99% 09/07/2023 11:32 AM CDT Inhaled Oxygen Concentration - - Weight 82.1 kg (181 lb) 09/07/2023 11:32 AM CDT Height 162.6 cm (5' 4) 09/07/2023 11:32 AM CDT Body Mass Index 31.07 09/07/2023 11:32 AM CDT Plan of Treatment Health Maintenance Due Date Last Done Comments BONE DENSITY TESTING 1952 COLON MONITORING 1952 COLONOSCOPY - COLON CA SCREENING 1952 CT COLONOGRAPHY - COLON CA SCREENING 1952 FIT - COLON CA SCREENING 1952 FLEX SIG - COLON CA SCREENING 1952 MAMMOGRAM 1952 HEPATITIS C SCREENING 09/16/1970 DTAP/TDAP/TD VACCINES (1 - Tdap) 09/21/1971 PNEUMOCOCCAL VACCINE 50+ (1 of 1 - PCV) 2002 ZOSTER VACCINE (1 of 2) 2002 SCREENING FOR DIABETES 08/09/2023 COVID-19 VACCINE (1 - 2023-2 5 season) 2023 DEPRESSION SCREENING 04/19/2024 MEDICARE AWV CALENDAR YEAR 2024 INFLUENZA VACCINE (#1) 2024 0, 04/19/2015 COLOGUARD (AGES 45-75) - COL ON CA SCREENING 01/11/2026 01/11/2023 Colorectal Cancer Screening 01/11/2026 Respiratory Syncytial Virus (RSV) Vaccine Pt: or over 60 yrs (1 - 1-dose 75+ series) 09/21/2027 LIPID TESTING 09/16/2028 09/17/2023 HEPATITIS B VACCINE Aged Out No longe r eligible based on patient's age to complete this topic HIB VACCINE Aged Out No longer eligi ble based on patient's age to complete this topic HPV VACCINE Aged Out No longer eligi ble based on patient's age to complete this topic MENINGOCOCCAL (Group B) VACCINE SHARED DECISION-MAKING Aged Out No longer eligible based on patient's age to complete this topic MENINGOCOCCAL GROUPS A/C/Y/W VACCINE Aged Out No longer eligible b ased on patient's age to complete this topic Procedures Procedure Name Priority Date/Time Associated Diagnosis Comments LIPID PROFILE Routine 09/17/2023 8:51 AM CDT Tremors of nervous system from Last 3 Months or Most Recently Relevant to Health Maintenance Results * (ABNORMAL) LIPID PROFILE (09/17/2023 8:51 AM CDT) Cholesterol 260(H) <200 mg/dL [facility] HDL Cholesterol 39(L) > OR = 50 mg/dL [facility] Triglycerides 218(H) <150 mg/dL [facility] Comment: If a non-fasting specimen was collected, consider repeat triglyceride testing on a fasting specimen if clinically indicated. Barbie et al. J. of Clin. Lipidol. 2015;9:129-169. LDL Calculated 180(H) mg/dL (calc) [facility] Comment: Reference range: <100 Desirable range <100 mg/dL for primary prevention; <70 mg/dL for patients with CHD or diabetic patients with > or = 2 CHD risk factors. LDL-C is now calculated using the Geovanny-Riley calculation, which is a validated novel method providing better accuracy than the Friedewald equation in the estimation of LDL-C. Geovanny SS et al. RADHA. 2013;310(19): 6478-9666 (http://education.Topix.ExecNote/faq/BTF563) CHOL/HDLC RATIO 6.7(H) <5.0 (calc) [facility] Non HDL Cholesterol 221(H) <130 mg/dL (calc) [facility] Comment: Non-HDL level > or = 220 is very high and may indicate genetic familial hypercholesterolemia (FH). Clinical assessment and measurement of blood lipid levels should be considered for all first-degree relatives of patients with an FH diagnosis. For patients with diabetes plus 1 major ASCVD risk factor, treating to a non-HDL-C goal of <100 mg/dL (LDL-C of <70 mg/dL) is considered a therapeutic option. Test Performed at: [facility] [address] [place] [address] ROSEANNE GALINDO MD Blood BLOOD SPECIMEN / Unknown 09/17/2023 8:51 AM CDT 09/17/2023 8:52 AM CDT Aakash Garcia MD LAB - CHEMISTRY ORDERABLES F inal Result [email or web address] [address] [place] [address] from Last 3 Months or Most Recently Relevant to Health Maintenance Insurance [facility] Care Teams Social Contact Worker Relationship Specialty Start Date End Date Daniel Hunter MD [address] [place] [id number] PCP - General Family Medicine 3/19/24
--- OUTSIDE RECORDS SUMMARY | 2024-11-08 07:10 | XMS_ITS | Clinical Summary ---
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 Gender Identity Not on file Sexual Orientation Not on file Plan of Treatment Health Maintenance Due Date Last Done Comments DTAP/TDAP/TD VACCINES (1 - Tdap) 09/21/1971 BREAST CANCER SCREENING 1992 COLORECTAL SCREENING 1997 Colorectal Cancer Screening 1997 FIT-DNA Q 3 years 1997 FIT/FOBT Q 1 year 1997 Flex Sig/CT Colonography Q 5 years 1997 PNEUMOCOCCAL VACCINE 50+ YEARS (1 of 1 - PCV) 09/21/19 03 ZOSTER VACCINE (1 of 2) 2002 OSTEOPOROSIS SCREENING 2017 06/25/2003 INFLUENZA VACCINE (#1) 2024 RSV VACCINE (60+ or ) (1 - 1-dose 75+ series) 09/21/2027 Procedures Procedure Name Priority Date/Time Associated Diagnosis Comments XR DEXA BONE DENSITY 2 SITES Routine 06/25/2003 from Last 3 Months or Most Recently Relevant to Health Maintenance Results * XR DEXA BONE DENSITY 2 SITES (06/25/2003) T-SCORE HEEL LEIA AMB EXTERNAL RADIOLOGY Anatomical Region Laterality Modality Other Solomon Lee MD DIAGNOSTIC IMAGING ORDERABLES Fi nal Result from Last 3 Months or Most Recently Relevant to Health Maintenance
--- OUTSIDE RECORDS SUMMARY | 2024-11-08 07:11 | XMS_ITS | Continuity of Care Document ---
Author Organization [facility] Address [address] [place] [id number] Phone Care Team Providers Care Mail Sorter Name Role Phone CONV, [facility] Unavailable Unavailable Advance Directives Directive Yes / No Effective Date File Name No Information Encounters Encounter Description Practice Location Reason(s) For Visit Diagnoses Date Provider Providers Copied on Encounter [facility] /[facility], [address] [place] [address], [id number], tel:[phone] Z [facility] CONV No Information CONV [facility]. [address] [place] [address], [id number], [place]. Family History Family Member Type Diagnosis Age At Onset No Information Immunizations Vaccine Date Status Comments TD, TETANUS-DIPHTHERIA administered Note: [place] ; Source: New Immunization Record Payers Payer name Insurance type Covered libertarian ID Authoriza tion(s) No Information Social History Type Description Quantity Date Captured Comments Sex Female Smoking Status No Information Chief Complaint And Reason For Visit No Information History Of Present Illness Encounter Date Complaint History Of Prese nt Illness No Information Instructions Date Instruction Additional Infor mation No Information Assessments Type Assessment Date No Information Patient Care Teams Name Effective Dates (start - stop) Status Members No Information
--- OUTSIDE RECORDS SUMMARY | 2024-11-08 07:11 | XMS_ITS | Encounter Summary ---
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
--- OUTSIDE RECORDS SUMMARY | 2024-11-08 07:11 | XMS_ITS | Encounter Summary ---
[facility] Organization [facility] Address [address] [place] [address] Care Team Providers Care Card Cutter Helper Name Role Phone Unavailable Primary Care Provider Unavailabl e Encounter Details Date Type Department Care Team (Late st Contact Info) Description 05/25/2000 Emergency [facility] Solomon Deng MD [address] 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
--- OUTSIDE RECORDS SUMMARY | 2024-11-08 07:11 | XMS_ITS | Data Portability ---
Author Organization [facility] [employer], Main Office Address [address] [place] [address] Care Team Providers Care Store Loss Prevention Manager Name Role Phone DANIEL HUNTER Primary Care Provider [phone] DANIEL HUNTER Referring Provider Assessment Encounter Date Assessment Date Assessment LastModified by Organization Details LastModified Time 07/25/2024 07/25/2024 73 yo F with - WELL ADULT VISIT - RT ELBOW EFFUSION - HTN - PERSISTENT BRADYCARDIA, chronic - HLD, improved - HTG, improved - DEPRESSION - ANXIETY - OA - LT SHOULDER PAIN, chronic - LT HIP PAIN, chronic - CHRONIC TREMORS - OBESITY I - SMOKER LDCT chest: 06/29/23. X-ray Lt shoulder: 06/29/23. Annual labs: 06/18/23. D/w pt about her findings, recent labs & imagines and further plan of care. Will do routine labs, LDCT chest. [place] meds verified with pt. Meds as directed. Ice pack as directed prn. Diet and exercise explained in detail. Fall risk precautions explained. BP diary education given. Educated pt about alarming symptoms to monitor at home and call us back Or get checked in ED. Pt verbalized understanding it. Cont f/u with Cardio as per schedule. Cont f/u with Ortho as per schedule. Cont f/u with Neuro at [facility] as per schedule. Offered to refer to Psych/counsellor; but pt declined. HM: WWE - Normal in the past. Pt declined. Mammo - 06/29/23, normal. Ordered. DEXA - 06/29/23, normal. Colonoscopy - Cologuard done on 01/11/23, neg. Flu - 03/28/24. Tdap - 05/04. Pneumo - 12/28/23. Shingrix - At pharmacy/HD. F/u in 3 weeks. Annual labs, LDCT chest in 08/12. Not available 07/25/2024 12:34:57 08/15/2024 08/15/2024 The patient has olecranon bursitis right elbow no evidence of infection. We talked about treatment options today in detail she wanted to have this decompressed after we discussed that possibility. Under sterile conditions I injected 3 cc of 0.5% bupivacaine subcutaneously around the point of the elbow at the olecranon. Once this was numbed up I proceeded to aspirate 10 cc of bloody serous fluid with an 18 gauge needle, this completely decompressed the sac and no bleeding was noted from the puncture site. The patient tolerated the procedure well. I have advised her to wear an Dylon wrap this was placed today for her she will use this to compress the area hopefully it will keep it from filling back up with fluid. I will see her back in a week or so to see how it is doing. If it starts to look red or hot or become more painful she will call me immediately we talked about the signs of infection. Right now it looks calm. She voiced understanding agreed with the above plan currently she is on prednisone prescribed by her primary care physician and also has nonsteroidal anti-inflammatory prescription she will continue with that as well she will call for any further problems difficulties or questions. I advised her not to lean on the elbow. Not available 08/15/2024 14:39:40 08/28/2024 08/28/2024 The patient has recurrent fluid collection around the right elbow due to olecranon bursitis of the right elbow. last time this decompressed nicely but filled back up pretty quickly. We talked about treatment options and at her request under sterile conditions I injected 3 cc of 0.5% bupivacaine subcutaneously over the olecranon of the right elbow this was numbed up I then proceeded to do another sterile prep and I used an 18 gauge needle to aspirate about 7 cc of bloody serous fluid. This decompressed the sac nicely and the patient tolerated the procedure well. There was no drainage or residual bleeding after the procedure. I then placed a Band-Aid covered by sterile gauze and an Dylon wrap to help compress the sac. She is advised to ice it down when she gets home and for the next couple of days do this several times a day. I will give her a course of oral prednisone also see if this helps slow things down. She is not on blood thinners does take a daily aspirin she also takes Celebrex daily. We will see how this works for her. I will see her back in 2 weeks if her symptoms continue we will talk about further options from there. She voiced understanding and agreed with the above plan she will call for any further problems difficulties or questions. Not available 08/28/2024 09:25:38 09/19/2024 09/19/2024 The patient has had chronic trochanteric bursitis type pain for at least a year. She has had a few injections at this point I think it is time to get an MRI scan. We will evaluate this further in the meantime she wanted to try 1 more shot of cortisone after that she may have to consider surgical debridement depending on what the MRI scan shows. She has tried a long course of multiple conservative measures without good relief. At her request under sterile conditions I injected the patient's left hip trochanteric bursa in the office with 4 cc 0.5% bupivacaine and 20 mg of Kenalog. Patient tolerated procedure well. I will see her back as needed we will get the MRI scan I will review it if she continues have significant symptoms we may refer her for surgical intervention. She voiced understanding and agreed with the above plan. Not available 09/19/2024 15:17:16 Plan of Treatment Reminders Order Date Submit Date Provider Last Modified By Organization Details Last Modified Time Details Appointments None recorded. Lab uric acid, serum or plasma 2024 025 [id number] [facility] (Lab), [address] [place], [address], 16:09:12 HbA1c (hemoglobi n A1c), blood 2024 025 [email or web address] [facility] (Lab), [address] [place], [address], 04/15/202 5 16:09:13 TSH, serum, reflex free T4 [address] (Lab), [address] [place], [address], 5 16:09:13 CBC w/ auto diff [address] (Lab), [address] [place], [address], 5 16:09:12 CMP, serum or plasma [address] (Lab), [address] [place], [address], 5 16:09:12 urinalysis complete, reflex culture [address] (Lab), [address] [place], [address], 5 17:47:50 vitamin B12 + folate, serum or blood [address] (Lab), [address] [place], [address], 5 17:49:11 magnesium, serum or plasma [address] (Lab), [address] [place], [address], 5 16:09:13 lipid panel, serum [address] (Lab), [address] [place], [address], 5 16:09:13 vitamin D, 25-hydroxy , total, serum [address] (Lab), [address] [place], [address], 16:09:13 Referral None recorded. Procedures injection/ aspiration joint/burs a (PROC) 2024 025 [id number] In-Office Order, Internal Use Only DO Not Attach Compendium DO Not Attach Compendium, Do Not Delete/merge, [id number] 14:49:11 injection/ aspiration joint/burs a (PROC) 2024 025 [email or web address] In-Office Order, Internal Use Only DO Not Attach Compendium DO Not Attach Compendium, Do Not Delete/merge, 09:11:26 injection/ aspiration joint/burs a (PROC) 2024 025 [email or web address] In-Office Order, Internal Use Only DO Not Attach Compendium DO Not Attach Compendium, Do Not Delete/merge, 14:32:05 Surgeries None recorded. Imaging MRI, hip, w/o contrast - Please give patient a disc of images, thanks 2024 [facility], [address], [address], 09:30:34 XR, elbow 2024 025 [id number] [place], [facility] [facility] [address], [place], [address], 5 14:52:53 MAMMO, screening, bilateral [address], [address] [facility] [address], [place], [address], 5 14:22:39 LDCT, chest, for lung cancer screening - Please call patient to schedule. [address] [facility], [address], [place], [place], [address], 14:06:19 Medication Orders bupivacain e HCl 0.5 % (5 mg/mL) injection solution [address] [facility][id number], [address] [facility], [place], [place], [id number], 5 15:02:43 Kenalog 10 mg/mL suspension for injection [address] [facility]23196, [address] [facility], [place], [place], [id number], 5 15:02:43 bupivacain e HCl 0.5 % (5 mg/mL) injection solution [address] [place] [address] [facility]77504, [address] [facility], [place], [place], [id number], 5 09:26:34 prednisone 10 mg tablets in a dose pack [address] [place] [address] [facility] #72022, [address] [facility], [place], [place], [id number], 5 09:26:34 bupivacain e HCl 0.5 % (5 mg/mL) injection solution [address] [place] [address] [facility] #20491, [address] [facility], [place], [place], [id number], 5 14:52:53 Vascepa 1 gram capsule 2024 025 [facility] #40246, [address] [facility], [place], [place], [id number], 5 12:17:31 celecoxib 200 mg capsule 04/2024 [facility] #65592, [address], [place], [place], [id number], 12:17:41 escitalopr am 20 mg tablet 2024 [facility]06021, [address], [place], [place], [id number], 12:17:33 nicotine 14 mg/24 hr daily transderma l patch 2024 [facility] #99279, [address] [facility], [place], [place], [id number], 12:20:15 rosuvastat in 10 mg tablet 2024 [facility] #26060, [address] [facility], [place], [place], [id number], 12:17:33 Medrol (Nic) 4 mg tablets in a dose pack 2024 [facility] [employer] [facility] #93466, [address], [place], [place], [id number], 12:17:39 omeprazole 40 mg capsule,de layed release 2024 [facility] [employer] [facility] #[id number], [address] [facility], [place], [place], [id number], 12:17:33 Patient TargetsNo targets recorded. Patient Instructions Encounter Date Encounter Id Patient Instructions Last Modified By Organization Details Last Modified Time 07/25/2024 [id number] high blood pressure: care instructions [id number] Not available 07/25/2024 12:17:21 high cholesterol : care instructions Not available 07/25/2024 12:17:22 Reason for Referral None Reported. Results Created Date Observation Date Name Description Value Unit Range Abnormal Flag Note LastModifiedBy Organization Detail LastModifiedTime 08/29/19 25 08/28/2024 COMPR EHENS DOLORES METAB OLIC PANEL sodium 137 mmol/ L 137-14 5 Not Available [facility] (Lab) [address] [place], [address], 08/28/2024 14:45:41 08/29/19 25 08/28/2024 COMPR EHENS DOLORES METAB OLIC PANEL potassium 4.6 mmol/ L 3.5-5. 1 Not Available [facility] (Lab) [address] [facility] [place], [address], 08/28/2024 14:45:41 08/29/19 25 08/28/2024 COMPR EHENS DOLORES METAB OLIC PANEL chloride 101 mmol/ L 98-107 Not Available [facility] (Lab) [address] [place], [address], 08/28/2024 14:45:41 08/29/19 25 08/28/2024 COMPR EHENS DOLORES METAB OLIC PANEL carbon dioxide 30 mmol/ L 22-30 Not Available [facility] (Lab) [address] [place], [address], 08/28/2024 14:45:41 08/29/19 25 08/28/2024 COMPR EHENS DOLORES METAB OLIC PANEL anion gap 10.6 mmol/ L 14-22 low Not Available [facility] (Lab) [address] [place], [address], 08/28/2024 14:45:41 08/29/19 25 08/28/2024 COMPR EHENS DOLORES METAB OLIC PANEL glucose 103 mg/dL 70-99 high Not Available [facility] (Lab) [address] [place], [address], 08/28/2024 14:45:41 08/29/19 25 08/28/2024 COMPR EHENS DOLORES METAB OLIC PANEL BUN 13 mg/dL 8-19 Not Available [facility] (Lab) [address] [place], [address], 08/28/2024 14:45:41 08/29/1908/28/2024 COMPR EHENS DOLORES METAB OLIC PANEL creatinine 0.91 mg/dL 0.66-1 .25 Not Available [facility] (Lab) [address] [place], [address], 08/28/2024 14:45:41 08/29/19 25 08/28/2024 COMPR EHENS DOLORES METAB OLIC PANEL GFR >60 Refer ence Range : Wheeler ge GFR Healt hy Adult : >60 mL/mi n/1.7 3 m2 Chron ic Kidne y Disea se: 15-60 mL/mi n/1.7 3 m2 Kidne y Failu re: <15/m L/min /1.73 m2 www.n iddk. nih.g ov The MDRD study equat ion has not been valid ated in child sara <18 years of age; pregn ant women ; the elder ly >85 years of age; or in some racia l or ethni c subgr oups, such as Hissc nics. Outsi de the valid ated fitz eters , estim ated GFR is less accur ate, requi ring clini latia judgm ent on a case- by-ca se basis . Clini latia inter preta tion for other races and ages must be made by the clini laz. The MDRD study equat ion has not been valid ated for the evalu ation of serum creat inine relat ed to nutri eulalio l statu s or medic ation usage . For perso ns <18 years of age, a pedia tric GFR calcu lator is avail able on the NKF websi te: https ://lesli alonso.saumya marsh/pr roxanneess ional s/kdo qi/gf r_cal culat or Not Available [facility] (Lab) [address] [place], [address], 08/28/2024 14:45:41 08/29/1908/28/2024 COMPR EHENS DOLORES METAB OLIC PANEL alkaline phosphatase 80 U/L 38-126 Not Available [facility] (Lab) [address] [facility] [place], [address], 08/28/2024 14:45:41 08/29/19 25 08/28/2024 COMPR EHENS DOLORES METAB OLIC PANEL alanine aminotransfe rase 16 U/L 0-35 Not Available [facility] (Lab) [address] [place], [address], 08/28/2024 14:45:41 08/29/19 25 08/28/2024 COMPR EHENS DOLORES METAB OLIC PANEL aspartate aminotransfe rase 26 U/L 15-37 Not Available [facility] (Lab) [address] [place], [address], 08/28/2024 14:45:41 08/29/19 25 08/28/2024 COMPR EHENS DOLORES METAB OLIC PANEL bilirubin, total 0.50 mg/dL 0.20-1 .30 Not Available [facility] (Lab) [address] [place], [address], 08/28/2024 14:45:41 08/29/19 25 08/28/2024 COMPR EHENS DOLORES METAB OLIC PANEL calcium 9.5 mg/dL 8.4-10 .2 Not Available [facility] (Lab) [address] [place], [address], 08/28/2024 14:45:41 08/29/19 25 08/28/2024 COMPR EHENS DOLORES METAB OLIC PANEL total protein 6.7 g/dL 6.3-8. 2 Not Available [facility] (Lab) [address] [place], [address], 08/28/2024 14:45:41 08/29/19 25 08/28/2024 COMPR EHENS DOLORES METAB OLIC PANEL albumin 4.1 g/dL 3.0-4. 4 Not Available [facility] (Lab) [address] [place], [address], 08/28/2024 14:45:41 08/29/19 25 08/28/2024 COMPR EHENS DOLORES METAB OLIC PANEL globulin 2.6 g/dL 2.6-4. 2 Not Available [facility] (Lab) [address] [place], [address], 08/28/2024 14:45:41 08/29/19 25 08/28/2024 COMPR EHENS DOLORES METAB OLIC PANEL A/G ratio 1.6 ratio 1.0-2. 0 Not Available [facility] (Lab) [address] [place], [address], 08/28/2024 14:45:41 08/29/19 25 08/28/2024 URIC ACID SERUM uric acid 4.5 mg/dL 2.5-6. 2 Not Available [facility] (Lab) [address] [place], [address], 08/28/2024 14:45:52 08/29/19 25 08/28/2024 MAGNE SIUM magnesium 2.1 mg/dL 1.6-2. 3 Not Available [facility] (Lab) [address] [place], [address], 08/28/2024 14:45:56 08/29/19 25 08/28/2024 LIPID PANEL cholesterol 154 mg/dL 140-19 9 NIH KALEB NSUS RECOM MENDA TION FOR ELISE STERO L: ADULT CHILD LOW RISK: <200 <170 BORDE RLINE : <200- 239 ----- HIGH RISK: >240 >200 Not Available [facility] (Lab) [address] [place], [address], 08/28/2024 14:46:02 08/29/19 25 08/28/2024 LIPID PANEL triglyceride s 201 mg/dL 0-150 high NIH KALEB NSUS REPOR T RECOM MENDA TION FOR TRIGL YCERI OSIRIS: ADULT CHILD LOW RISK: <150 ----- BODER LINE: 150-1 99 ----- HIGH RISK: >200 ----- Not Available [facility] (Lab) [address] [place], [address], 08/28/2024 14:46:02 08/29/1908/28/2024 LIPID PANEL HDL cholesterol 37 mg/dL 40- low Not Available [facility] (Lab) [address] [place], [address], 08/28/2024 14:46:02 08/29/1908/28/2024 LIPID PANEL LDL cholesterol, calculated 77 mg/dL 0-130 NIH KALEB NSUS REPOR T RECOM MENDA TIONS FOR LDL: ADULT CHILD LOW RISK <130 <110 (OPTI MAL LDL) <100 ----- KENDALL RLINE : 130-1 59 ----- HIGH RISK: >160 >130 A TRIGL YCERI DE RESUL T >400 INVAL IDATE S THE CALCU LATIO N FOR LDL FRACT IONAT ION - THE LDL RESUL T WILL NOT BE REPOR GABRIELLA. Not Available [facility] (Lab) [address] [place], [address], 08/28/2024 14:46:02 08/29/1908/28/2024 CBC/C OMPLE TE BLD COUNT W/DIF F white blood cells 8.7 x10'3 /uL 4.2-10 .8 Not Available [facility] (Lab) [address] [place], [address], 08/28/2024 14:49:35 08/29/1908/28/2024 CBC/C OMPLE TE BLD COUNT W/DIF F red blood cells 4.28 x10'6 /uL 3.80-5 .20 Not Available [facility] (Lab) [address] [place], [address], 08/28/2024 14:49:35 08/29/19 25 08/28/2024 CBC/C OMPLE TE BLD COUNT W/DIF F hemoglobin 13.3 g/dL 12.0-1 5.6 Not Available [facility] (Lab) [address] [place], [address], 08/28/2024 14:49:35 08/29/19 25 08/28/2024 CBC/C OMPLE TE BLD COUNT W/DIF F hematocrit 39.7 % 35.7-4 5.7 Not Available [facility] (Lab) [address] [place], [address], 08/28/2024 14:49:35 08/29/19 25 08/28/2024 CBC/C OMPLE TE BLD COUNT W/DIF F mean red cell volume 92.8 fL 82.0-9 9.0 Not Available [facility] (Lab) [address] [place], [address], 08/28/2024 14:49:35 08/29/19 25 08/28/2024 CBC/C OMPLE TE BLD COUNT W/DIF F mean red cell hemoglobin 31.1 pg 27.0-3 3.0 Not Available [facility] (Lab) [address] [place], [address], 08/28/2024 14:49:35 08/29/19 25 08/28/2024 CBC/C OMPLE TE BLD COUNT W/DIF F mean RBC HGB concentratio n 33.5 g/dL 31.0-3 6.0 Not Available [facility] (Lab) [address] [place], [address], 08/28/2024 14:49:35 08/29/19 25 08/28/2024 CBC/C OMPLE TE BLD COUNT W/DIF F red cell distribution width 13.2 % 11.8-1 5.5 Not Available [facility] (Lab) [address] [place], [address], 08/28/2024 14:49:35 08/29/19 25 08/28/2024 CBC/C OMPLE TE BLD COUNT W/DIF F platelets 247 x10'3 /uL 150-40 0 Not Available [facility] (Lab) [address] [place], [address], 08/28/2024 14:49:35 08/29/19 25 08/28/2024 CBC/C OMPLE TE BLD COUNT W/DIF F mean platelet volume 9.8 fL 9.0-12 .4 Not Available [facility] (Lab) [address] [place], [address], 08/28/2024 14:49:35 08/29/19 25 08/28/2024 CBC/C OMPLE TE BLD COUNT W/DIF F neutrophils 60.3 % 39.0-7 2.0 Not Available [facility] (Lab) [address] [place], [address], 08/28/2024 14:49:35 08/29/19 25 08/28/2024 CBC/C OMPLE TE BLD COUNT W/DIF F lymphocytes 29.1 % 16.0-4 7.0 Not Available [facility] (Lab) [address] [place], [address], 08/28/2024 14:49:35 08/29/19 25 08/28/2024 CBC/C OMPLE TE BLD COUNT W/DIF F monocytes 7.2 % 5.0-12 .0 Not Available [facility] (Lab) [address] [place], [address], 08/28/2024 14:49:35 08/29/19 25 08/28/2024 CBC/C OMPLE TE BLD COUNT W/DIF F eosinophils 2.5 % 1.0-7. 0 Not Available [facility] (Lab) [address] [place], [address], 08/28/2024 14:49:35 08/29/19 25 08/28/2024 CBC/C OMPLE TE BLD COUNT W/DIF F basophils 0.6 % 0.0-2. 0 Not Available [facility] (Lab) [address] [place], [address], 08/28/2024 14:49:35 08/29/19 25 08/28/2024 CBC/C OMPLE TE BLD COUNT W/DIF F immature granulocytes 0.3 % 0.00-0 .50 Not Available [facility] (Lab) [address] [place], [address], 08/28/2024 14:49:35 08/29/19 25 08/28/2024 CBC/C OMPLE TE BLD COUNT W/DIF F neutrophils, absolute count 5.23 x10'3 /uL 1.5-8. 0 Not Available [facility] (Lab) [address] [place], [address], 08/28/2024 14:49:35 08/29/19 25 08/28/2024 CBC/C OMPLE TE BLD COUNT W/DIF F lymphocytes, absolute count 2.53 x10'3 /uL 1.07-3 .43 Not Available [facility] (Lab) [address] [place], [address], 08/28/2024 14:49:35 08/29/19 25 08/28/2024 CBC/C OMPLE TE BLD COUNT W/DIF F monocytes, absolute count 0.63 x10'3 /uL 0.29-0 .99 Not Available [facility] (Lab) [address] [place], [address], 08/28/2024 14:49:35 08/29/19 25 08/28/2024 CBC/C OMPLE TE BLD COUNT W/DIF F eosinophils, absolute count 0.22 x10'3 /uL 0.02-0 .53 Not Available [facility] (Lab) [address] [place], [address], 08/28/2024 14:49:35 08/29/19 25 08/28/2024 CBC/C OMPLE TE BLD COUNT W/DIF F basophils, absolute count 0.05 x10'3 /uL 0.01-0 .08 Not Available [facility] (Lab) [address] [place], [address], 08/28/2024 14:49:35 08/29/19 25 08/28/2024 CBC/C OMPLE TE BLD COUNT W/DIF F immature granulocytes ,absolute 0.03 x10'3 /uL 0.00-0 .05 Not Available [facility] (Lab) [address] [place], [address], 08/28/2024 14:49:35 08/29/19 25 08/28/2024 CBC/C OMPLE TE BLD COUNT W/DIF F nucleated red blood cells 0.0 % -0 Not Available [facility] (Lab) [address] [place], [address], 08/28/2024 14:49:35 08/29/19 25 08/28/2024 CBC/C OMPLE TE BLD COUNT W/DIF F NRBC# 0.00 x10'3 /uL Not Available [facility] (Lab) [address] [place], [address], 08/28/2024 14:49:35 08/29/19 25 08/28/2024 VITAM IN D 25-HY DROXY [id number] 49.2 NG/mL 30-100 Vitam in D Statu s: Defic ient: <20 ng/mL Insuf ficie nt: 20-29 ng/mL Suffi cient : 30-10 0 ng/mL Not Available [facility] (Lab) [address] [place], [address], 08/28/2024 14:50:14 08/29/19 25 08/28/2024 TSH W/REF PRAVIN FT4 TSH with reflex free T4 1.990 uIU/m L 0.465- 4.680 Not Available [facility] (Lab) [address] [place], [address], 08/28/2024 15:01:54 08/29/19 25 08/28/2024 URINA LYSIS COMPL ETE/I RIS W/RFX color LIGHT- YELLOW Not Available [facility] (Lab) [address] [place], [address], 08/28/2024 15:22:37 08/29/19 25 08/28/2024 URINA LYSIS COMPL ETE/I RIS W/RFX appear TURBID abnormal Not Available [facility] (Lab) [address] [place], [address], 08/28/2024 15:22:37 08/29/19 25 08/28/2024 URINA LYSIS COMPL ETE/I RIS W/RFX specific gravity 1.011 1.001- 1.030 Not Available [facility] (Lab) [address] [place], [address], 08/28/2024 15:22:37 08/29/19 25 08/28/2024 URINA LYSIS COMPL ETE/I RIS W/RFX pH 6.5 pH_un its 5.0-9. 0 Not Available [facility] (Lab) [address] [place], [address], 08/28/2024 15:22:37 08/29/19 25 08/28/2024 URINA LYSIS COMPL ETE/I RIS W/RFX leukocytes 250 tahir/u L negati ve- abnormal Not Available [facility] (Lab) [address] [place], [address], 08/28/2024 15:22:37 08/29/19 25 08/28/2024 URINA LYSIS COMPL ETE/I RIS W/RFX nitrite NEGATI VE negati ve- Not Available [facility] (Lab) [address] [place], [address], 08/28/2024 15:22:37 08/29/19 25 08/28/2024 URINA LYSIS COMPL ETE/I RIS W/RFX protein NEGATI VE mg/dL negati ve- Not Available [facility] (Lab) [address] [place], [address], 08/28/2024 15:22:37 08/29/19 25 08/28/2024 URINA LYSIS COMPL ETE/I RIS W/RFX glucose NORMAL mg/dL normal - Not Available [facility] (Lab) [address] [place], [address], 08/28/2024 15:22:37 08/29/19 25 08/28/2024 URINA LYSIS COMPL ETE/I RIS W/RFX ketones NEGATI VE mg/dL negati ve- Not Available [facility] (Lab) [address] [place], [address], 08/28/2024 15:22:37 08/29/19 25 08/28/2024 URINA LYSIS COMPL ETE/I RIS W/RFX urobilinogen NORMAL mg/dL normal - Not Available [facility] (Lab) [address] [place], [address], 08/28/2024 15:22:37 08/29/19 25 08/28/2024 URINA LYSIS COMPL ETE/I RIS W/RFX bilirubin NEGATI VE mg/dL negati ve- Not Available [facility] (Lab) [address] [place], [address], 08/28/2024 15:22:37 08/29/19 25 08/28/2024 URINA LYSIS COMPL ETE/I RIS W/RFX blood NEGATI VE mg/dL negati ve- Not Available [facility] (Lab) [address] [facility] [place], [address], 08/28/2024 15:22:37 08/29/19 25 08/28/2024 URINA LYSIS COMPL ETE/I RIS W/RFX white blood cells 9-20 /i??h pfi?? 0-8 abnormal Not Available [facility] (Lab) [address] [place], [address], 08/28/2024 15:22:37 08/29/19 25 08/28/2024 URINA LYSIS COMPL ETE/I RIS W/RFX red blood cells 0-4 /i??h pfi?? 0-4 Not Available [facility] (Lab) [address] [place], [address], 08/28/2024 15:22:37 08/29/19 25 08/28/2024 URINA LYSIS COMPL ETE/I RIS W/RFX bacteria NONE none seen- Not Available [facility] (Lab) [address] [place], [address], 08/28/2024 15:22:37 08/29/19 25 08/28/2024 URINA LYSIS COMPL ETE/I RIS W/RFX mucous OCCASI ONAL /i??l pfi?? none seen- abnormal Not Available [facility] (Lab) [address] [place], [address], 08/28/2024 15:22:37 08/29/19 25 08/28/2024 URINA LYSIS COMPL ETE/I RIS W/RFX squamous epithelial PACKED FIELD /i??l pfi?? abnormal Not Available [facility] (Lab) [address] [place], [address], 08/28/2024 15:22:37 08/29/19 25 08/28/2024 VITAM IN B12 (NATI SAMRA ) vb12 478 pg/mL 239-93 1 Not Available [facility] (Lab) [address] [place], [address], 08/28/2024 15:42:08 08/29/19 25 08/28/2024 FOLAT E, SERUM /PLAS MA folate 6.93 NG/mL 2.76-2 0.0 Not Available [facility] (Lab) [address] [place], [address], 08/28/2024 15:42:12 08/29/19 25 08/28/2024 HEMOG LOBIN A1C HA1C 5.6 % 4.0-6. 0 Diabe saman Scree bradford Crite ruddy: <5.7% Consi stent with absen ce of diabe saman 5.7-6 .4% Consi stent with incre ased risk for diabe saman (pred iabet es) >OR=6 .5% Consi stent with diabe saman REFER ENCE: Diabe saman Care 2016, 39(Oakley ppl.1 ):s13 -s22 Not Available [facility] (Lab) [address] [place], [address], 08/28/2024 19:23:58 08/16/19 25 XR, elbow No observ ation record ed. [facility] [address], [place], [address], 08/15/2024 14:40:24 Result Notes None recorded. 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 Not Available [facility] 4 06:07:11 Pain of shoulder region 38612998 Active 2017 Not Available [facility] 4 06:07:11 Smoker 60527663 Active 2017 Not Available [facility] 4 06:07:11 Fatigue 51509943 Active 2017 Not Available [facility] 4 06:07:11 Hyperlipi demia 03867835 Active 2017 Not Available [facility] 4 06:07:11 Vitamin B12 deficienc y (non anemic) 76207215 Active 2017 Not Available [facility] 4 06:07:11 Vitamin D deficienc y 89404571 Active 2018 Not Available [facility] 4 06:07:11 Neuropath y 025520882 Active 2018 Not Available [facility] 4 06:07:11 History of polyp of colon 375404680 Active 2018 Not Available [facility] 4 06:07:11 Anxiety 77833090 Active 2018 Not Available [facility] 4 06:07:11 Postmenop ausal state 84255171 Active 2018 Not Available [facility] 4 06:07:11 Tobacco user 928437147 Active 2019 Not Available [facility] 4 06:07:11 Osteoarth ritis 464137786 Active 2019 Not Available [facility] 4 06:07:11 Parkinson 's disease 84405831 Active 2021 Not Available [facility] 4 06:07:11 Pain of left shoulder joint 34647788985 780957 Active 2022 Not Available [facility] 4 06:07:11 Gastroeso phageal reflux disease 347757445 Active 2022 Not Available [facility] 4 06:07:11 Mixed hyperlipi demia 276659445 Active 2022 Not Available [facility] 4 06:07:11 Pain of left hip joint 43006488077 9100 Active 2023 Daniel Hunter MD [address], [place], [address] , [facility] 4 15:44:17 Depressiv e disorder 38934145 Active 2023 Daniel Hunter MD [address], [place], [address] , [facility] 4 15:46:38 Anxiety disorder 507827170 Active 2023 Daniel Hunter MD [address], [place], [address] , [facility] 4 15:47:05 Gastroeso phageal reflux disease without esophagit is 985958415 Active 2023 Daniel Hunter MD [address], [place], [address] , [facility] 4 15:48:30 Essential tremor 399535526 Active 2023 Daniel Hunter MD [address], [place], [address] , [facility] 4 15:49:36 Obesity 198482254 Active 2023 Daniel Hunter MD [address], [place], [address] , [facility] 4 15:53:14 Hypertrig lyceridem ia 015474102 Active 2023 Daniel Hunter MD [address], [place], [address] , [facility] 4 12:12:58 Osteoarth ritis of left glenohume ral joint 87008667245 12769 Active 2023 KRYSTLE Nance [address], [place], [address] , [facility] 4 10:44:44 Persisten t sinus bradycard ia 65774240 Active 2023 Daniel Hunter MD [address], [place], [address] , [facility] [employer] [facility] 4 10:17:40 Trochante jamel bursitis of left hip 57303873261 9103 Active 2023 Carlene Pepper null, [facility] [employer] [facility] 4 11:43:43 Effusion of joint of right elbow 25154114440 9102 Active 2024 Daniel Hunter MD [address], [place], [address] , [facility] [employer] [facility] 5 12:14:15 Cigarette smoker 87159132 Active 2024 Daniel uHnter MD [address], [place], [address] , [facility] [employer] [facility] [employer] [facility] 5 12:15:33 Pain of right elbow joint 17067037602 592132 Active 2024 Jocelyn Jack CNA null, [facility] [employer] [facility] 5 13:48:37 Bursitis of olecranon of right elbow 40066243910 9108 Active 2024 KRYSTLE Nance [address], [place], [address] , [facility] [employer] [facility] 5 14:40:43 Problem Notes None recorded. Procedures Surgical History Date Name Laterality Status Provider Name and Address Organization Details Recorded Time 07/26/19 25 Smoking Cessation completed Daniel Hunter MD [address], [place], [address], [facility] [employer] [facility] 07/25/2024 12:19:38 03/28/20 24 Smoking Cessation completed Daniel Hunter MD [address], [place], [address], [facility] [employer] [facility] 03/28/2024 15:16:58 12/28/19 24 Smoking Cessation completed Daniel Hunter MD [address], [place], [address], [facility] [employer] [facility] [employer] 12/28/2023 15:15:09 06/15/19 24 Medicare Wellness CPT Code, subsequent completed July TOSHA Perez [place] [employer] [facility] [employer] 06/15/2023 16:04:03 06/15/19 24 Smoking Cessation completed Daniel Hunter MD [address], [place], [address], [facility] [employer] 06/15/2023 15:42:02 Cholecystectomy completed Not Available [facility] 06/17/2022 19:45:42 Tubal Ligation completed Not Available [facility] 06/17/2022 19:45:42 Cataract Surgery completed Not Available [facility] 06/17/2022 19:45:42 Imaging Results None recorded. Procedure Notes None recorded. Medical Equipment None Reported. Allergies Allergen ID Allergen Name Allergen Category Reaction Reaction Severity Criticality Documentation Date Start Date Code Code System Note Provider Name and Address Organization Details Recorded Time 08920 Product containin g 3-hydroxy -3-methyl glutaryl- coenzyme A reductase inhibitor (product) medicatio n other severe Not available 06/17/20222017 73132 009 SNOMED Not Available [facility] 3 19:48:12 46086 Bactrim medicatio n other moderate Not available 06/17/2022 93946 9 RxNorm Not Available [facility] 3 19:48:12 40252 amoxicill in medicatio n anaphylax is severe Not available 06/17/20222002 723 RxNorm Not Available [facility] 3 19:48:12 Medications Name Sig Start Date Stop Date Status Note LastModified by Organization Details LastModified Time celecoxib 200 mg capsule TAKE 1 CAPSULE BY MOUTH EVERY DAY WITH FOOD NEEDED active Not Available Not Available No t Available primidone 50 mg tablet TAKE 1 TABLET BY MOUTH TWICE DAILY DIRECTED active Not Available Not Available No t Available prednisone 10 mg tablet TAKE 4 TABLETS BY MOUTH DAILY FOR 5 DAYS active Not Available Not Available No t Available nicotine 14 mg/24 hr daily transdermal patch APPLY 1 PATCH EVERY DAY active Not Available Not Available No t Available azithromyci n 250 mg tablet TAKE 2 TABLETS (500 MG) BY ORAL ROUTE ONCE DAILY FOR 1 DAY THEN 1 TABLET (250 MG) BY ORAL ROUTE ONCE DAILY FOR 4 DAYS active Not Available Not Available No t Available fluconazole 150 mg tablet 05/23 completed Not Available Not Available Not Available phenazopyri dine 200 mg tablet TK 1 T PO TID PRN FOR URINARY DISCOMFOR T. TK AFTER MEALS 07/29 completed Not Available Not Available Not Available bupivacaine HCl 0.5 % (5 mg/mL) injection solution IN OFFICE 2024 active Not Available Not Available Not Avai lable amlodipine 5 mg tablet TAKE 1 TABLET BY MOUTH DAILY active Not Available Not Available No t Available sulfamethox azole 800 mg-trimetho prim 160 mg tablet TAKE 1 TABLET BY MOUTH EVERY 12 HOURS FOR 5 DAYS 01/09 completed Not Available Not Available Not Available omeprazole 40 mg capsule,del ayed release Take 1 capsule every day by oral route in the morning for 90 days. 2024 active Not Available Not Available Not Avai lable theophyllin e ER 300 mg tablet,exte nded release,12 hr TAKE 1 TABLET BY MOUTH DAILY active Not Available Not Available No t Available prednisone 10 mg tablets in a dose pack Take 1 tab by mouth, 3 times a day for 3 daysTake 1 tab by mouth 2 times a day for 2 daysTake 1 tab by mouth once a day for 1 day 2024 active Not Available Not Available Not Avai lable meloxicam 7.5 mg tablet TAKE 1 TABLET BY MOUTH TWICE DAILY 01/09 completed Not Available Not Available Not Available propranolol 40 mg tablet TAKE 1 TABLET BY MOUTH TWICE DAILY DIRECTED 07/25 completed Not Available Not Available Not Available alprazolam 0.25 mg tablet TAKE 1 TABLET BY MOUTH EVERY DAY NEEDED 2024 active Not Available Not Available Not Avai lable prednisolon e acetate 1 % eye drops,suspe nsion SHAKE LIQUID AND INSTILL 1 DROP IN LEFT EYE THREE TIMES DAILY 07/01 completed Not Available Not Available Not Available pravastatin 10 mg tablet 1 tab po nightly active Not Available Not Available No t Available Kenalog 10 mg/mL suspension for injection IN OFFICE 2024 active [facility][NOTE 3]: 0003- [phone] [phone] Not Available Not Available Not Available meclizine 25 mg tablet TK 1 T PO TID 07/29 completed Not Available Not Available Not Available ranitidine 150 mg tablet Take 1 tablet twice a day by oral route for 30 days. active Not Available Not Available No t Available valsartan 320 mg tablet TAKE 1 TABLET BY MOUTH EVERY DAY active Not Available Not Available No t Available nicotine 21 mg/24 hr daily transdermal patch Apply 1 patch every day by transderm al route. 08/10 completed Not Available Not Available Not Available omeprazole 20 mg capsule,del ayed release TAKE 1 CAPSULE BY MOUTH EVERY DAY 10/03 completed Not Available Not Available Not Available ergocalcife rol (vitamin D2) 1,250 mcg (50,000 unit) capsule TAKE 1 CAPSULE BY MOUTH EVERY WEEK DIRECTED active Not Available Not Available No t Available methylpredn isolone 4 mg tablets in a dose pack FOLLOW PACKAGE DIRECTION S active Not Available Not Available No t Available propranolol 20 mg tablet TAKE 1 TABLET BY MOUTH TWICE DAILY 10/03 completed Not Available Not Available Not Available carbidopa 25 mg-levodopa 100 mg tablet TAKE 1 TABLET BY MOUTH TWICE DAILY 06/15 completed Not Available Not Available Not Available nicotine 7 mg/24 hr daily transdermal patch Apply 1 patch every day by transderm al route. 08/10 completed Not Available Not Available Not Available valsartan 160 mg tablet TAKE 1 TABLET BY MOUTH DAILY active Not Available Not Available No t Available escitalopra m 10 mg tablet TAKE 1 TABLET BY MOUTH EVERY DAY active Not Available Not Available No t Available escitalopra m 20 mg tablet TAKE 1 TABLET BY MOUTH EVERY DAY 2024 active Not Available Not Available Not Avai lable Asprin Ec Low Dose 81 mg tablet,jessica yed release Take 1 tablet every day by oral route. active Not Available Not Available No t Available ezetimibe 10 mg tablet TAKE 1 TABLET BY MOUTH EVERY DAY active Not Available Not Available No t Available cyclobenzap rine 5 mg tablet TAKE 1 TABLET BY MOUTH EVERY EVENING NEEDED 06/15 completed Not Available Not Available Not Available rosuvastati n 10 mg tablet Take 1 tablet every day by oral route at bedtime for 90 days. 2024 active Not Available Not Available Not Avai lable escitalopra m 5 mg tablet Take 1 tablet every day by oral route for 30 days. 12/21 completed Not Available Not Available Not Available nitrofurant oin monohydrate /macrocryst als 100 mg capsule TAKE 1 CAPSULE BY MOUTH EVERY 12 HOURS FOR 7 DAYS 09/24 completed Not Available Not Available Not Available magnesium 400 mg 09/24 completed Not Available Not Available Not Available Vitamin B-12 200 mg 09/24 completed Not Available Not Available Not Available multivitami n active Not Available Not Available Not Available lidocaine (PF) 10 mg/mL (1 %) injection solution In office injection administe red by the provider 09/25 completed [facility][NOTE 3]: [id number] [phone] [phone] Not Available Not Available Not Available varenicline tartrate 1 mg tablet TAKE 1 TABLET BY MOUTH TWICE DAILY 07/25 completed Not Available Not Available Not Available varenicline tartrate 0.5 mg (11)-1 mg (42) tablets in a dose pack FOLLOW PACKAGE DIRECTION S 07/25 completed Not Available Not Available Not Available Livalo 2 mg tablet Take 1 tablet every day by oral route. 12/30 completed Not Available Not Available Not Available Vitamin D2 active Not Available Not Av ailable Not Available icosapent ethyl 1 gram capsule TAKE 2 CAPSULES BY MOUTH TWICE DAILY active Not Available Not Available No t Available Vitals Date Recorded Oxygen saturation Oxygen saturation in Arterial blood by Pulse oximetry Provider Name and Address Organization Details Last Updated DateTime 07/25/2024 97 % 97 % Daniel Hunter MD [address], [place], [address], [facility] [employer] 07/25/2024 12:08:10 Date Recorded Body height Body mass index (BMI) Body weight Body temperature Heart rate Systolic And Diastolic Provider Name and Address Organization Details Last Updated DateTime 162.56 cm 32.7 kg/m2 86291.3 g 96.9 [degF] 71 /min 122/78 mm[Hg] Domitila Cee RN [facility] [employer] 12:02:28 Date Recorded Body height Body mass index (BMI) Body weight Provider Name and Address Organization Details Last Updated DateTime 08/15/2024 162.56 cm 31.8 kg/m2 96383.59 g Jocelyn Jack CNA [employer] 08/15/2024 13:48:04 Date Recorded Body height Body mass index (BMI) Body weight Provider Name and Address Organization Details Last Updated DateTime 08/28/2024 162.56 cm 32.4 kg/m2 24406.96 g Jocelyn Jack CNA [employer] [facility] [employer] 08/28/2024 09:05:32 Date Recorded Body height Body mass index (BMI) Body weight Provider Name and Address Organization Details Last Updated DateTime 09/19/2024 162.56 cm 31.8 kg/m2 16393.59 g Darling Cee [place] [employer] [facility] [employer] 09/19/2024 14:45:26 Social History Question Answer Notes LastModified by Organizat ion Details LastModified Time Tobacco Smoking Status Current Every Day Smoker Not Available [facility] 06/17/2022 19:45:32 Do You Have An Advance Directive? No [id number] Information not available 06/17/2022 Do You Wear A Helmet When Biking? Yes MIGRATION.28114 30434 Information not available 06/17/2022 Are You Blind Or Do You Have Difficulty Seeing? No MIGRATION.57266 00335 Information not available 06/17/2022 Is Blood Transfusion Acceptable In An Emergency? Yes Information not available 12/30/2022 What Is Your Level Of Caffeine Consumption? Moderate 3 Cups Of Coffee Per Day W/half And Half Information not available 07/25/2024 How Much Tobacco Do You Chew? None MIGRATION.73465 [id number] Information not available 06/17/2022 What Is Your Code Status? Full Code Information not available 12/30/2022 In The 14 Days Before Symptom Onset, Have You Had Close Contact With A Laboratory-confir med COVID-19 While That Case Was Ill? No MIGRATION.77210 [id number] Information not available 06/17/2022 In The 14 Days Before Symptom Onset, Have You Had Close Contact With A Person Who Is Under Investigation For COVID-19 While That Person Was Ill? No MIGRATION.41738 61626 Information not available 06/17/2022 Are You Deaf Or Do You Have Serious Difficulty Hearing? No MIGRATION.20666 89162 Information not available 06/17/2022 What Type Of Diet Are You Following? REGULAR MIGRATION.59491 41639 Information not available 06/17/2022 Which Illicit Or Recreational Drugs Have You Used? None Information not available 07/25/2024 Have There Been Any Changes To Your Family Or Social Situation? No MIGRATION.71131 36213 Information not available 06/17/2022 Do You Use Insect Repellent Routinely? Yes MIGRATION.88723 49347 Information not available 06/17/2022 Advance Directive- Providers Has Reviewed Directive And Consents To Follow Them (insert Provider Name With Any Objectives In Notes Field) No MIGRATION.13902 01943 Information not available 06/17/2022 Do You Have A Medical Power Of Glassware Finisher? No Information not available 12/30/2022 What Was The Date Of Your Most Recent Tobacco Screening? 06/15/2023 [email or web address] Information not available 06/15/2023 What Is Your Current Pack Years? 30ormorepacky ears [email or web address] Information not available 07/25/2024 Do You Have Any Pets? No MIGRATION.29221 05210 Information not available 06/17/2022 What Is Your Relationship Status? MIGRATION.14777 35173 Information not available 06/17/2022 Do You Use Your Seat Belt Or Car Seat Routinely? Yes MIGRATION.94658 87124 Information not available 06/17/2022 Do You Have Smoke And Carbon Monoxide Detectors In Your Home? Yes MIGRATION.11238 36989 Information not available 06/17/2022 At What Age Did You Start Smoking Tobacco? 23 [email or web address] Information not available 07/25/2024 Are You Passively Exposed To Smoke? No MIGRATION.11262 77030 Information not available 06/17/2022 Are There Any Smokers In Your House? Yes MIGRATION.40970 17538 Information not available 06/17/2022 How Much Tobacco Do You Smoke? 0.5 PPD [email or web address] Information not available 07/25/2024 Do You Participate In Social Media? No MIGRATION.43742 27107 Information not available 06/17/2022 Do You Use Sunscreen Routinely? Yes MIGRATION.10034 64969 Information not available 06/17/2022 Has Tobacco Cessation Counseling Been Provided? No MIGRATION.02916 28525 Information not available 06/17/2022 How Many Years Have You Smoked Tobacco? 50 [email or web address] Information not available 07/25/2024 Have You Recently Traveled Abroad? No MIGRATION.91298 67353 Information not available 06/17/2022 Do You Have Difficulty Walking Or Climbing Stairs? No MIGRATION.67780 91836 Information not available 06/17/2022 Do You Have Any Dietary Restrictions? No MIGRATION.48644 48058 Information not available 06/17/2022 Sex: Female Functional Status Question Answer Note LastModified by [employer] ion Details LastModified Time Do you use any illicit or recreational drugs? No [email or web address] Information not available 07/25/2024 Do you or have you ever used any other forms of tobacco or nicotine? No [email or web address] Information not available 07/25/2024 What is your level of alcohol consumption? Occasional Information not available 07/25/2024 Do you or have you ever used smokeless tobacco? Never used smokeless tobacco MIGRATION.816236 7013 Information not available 06/17/2022 Do you have transportation difficulties? No MIGRATION.255959 7078 Information not available 06/17/2022 Are you able to walk? YESWOREST MIGRATION.659894 3223 Information not available 06/17/2022 Do you have difficulty doing errands alone? No MIGRATION.961995 7831 Information not available 06/17/2022 Are you able to care for yourself? Yes MIGRATION.202222 6102 Information not available 06/17/2022 What is your occupation? retired MIGRATION.080237 2757 Information not available 06/17/2022 Do you have difficulty dressing or bathing? No MIGRATION.026358 7433 Information not available 06/17/2022 Do you or have you ever used e-cigarettes or vape? Never used electronic cigarettes MIGRATION.577947 4590 Information not available 06/17/2022 What is your exercise level? None MIGRATION.792970 8551 Information not available 06/17/2022 Mental Status Question Answer Note LastModified by [employer] Details LastModified Time Do you feel stressed (tense, restless, nervous, or anxious, or unable to sleep at night)? [id number] MIGRATION.[id number] 26 Information not available 06/17/2022 Do you have difficulty concentrating, remembering or making decisions? No MIGRATION.82672661 26 Information not available 06/17/2022 Family History Nothing Reported Notes:heart problems - both parents Medical History Condition Response BLINDNESS N RHEUMATIC FEVER N KIDNEY STONES N BLADDER PROBLEMS N MRSA N OTHER # 1 N POLIO N LUNG DISEASE/DISORDER N HISTORY OF DRUG ABUSE N COPD N RADIATION / CHEMOTHERAPY N Other # 2 N BLOOD DISEASES N SURGERY N EAR OR HEARING PROBLEMS N MUMPS N SHINGLES N FEMALE PROBLEMS / INFECTIONS N BOWEL PROBLEMS N DEPRESSION (INCLUDING POST ) N STROKE/TIA Y THYROID DISEASE N ULCERS N BENIGN PROSTATIC HYPERPLASIA N MEASLES N CERVICALGIA N HYPOTENSION N TB SKIN TEST N MYOCARDIAL INFARCTION N OBESITY N PARAPELGIA N GERD/NAUSEA N ANEURYSM N URINARY/BLADDER/KIDNEY PROBLEMS N CORONARY ARTERY DISEASE (CAD) N MENIERE'S DISEASE N ADDICTION CONCERNS N ENDOMETRIOSIS N USE OF BLOOD THINNERS Y SKIN PROBLEMS N EMPHYSEMA N GASTROINTESTINAL DISORDER N MUSCLE,JOINT OR BONE PROBLEMS N GASTROINTESTINAL BLEEDING N BLOOD CLOTS N ASTHMA N CATARACTS N ERECTILE DYSFUNCTION N GI PROBLEMS Y CHF N Low Testosterone N NEUROPATHY N INFERTILITY N AIDS/HIV N FRACTURES N CHEMOTHERAPY / RADIATION N VISION/EYE PROBLEMS N LIVER DISEASE N MALE HYPOGONADISM N HYPERTENSION Y TOURETTE'S N ANXIETY DISORDER N BLOOD TRANSFUSION N ANEMIA/BLOOD DISORDER N CHRONIC EAR INFECTIONS N BRONCHITIS N TUBERCULOSIS N GLAUCOMA N FOOT PROBLEM N DIVERTICULITIS N SLEEP APNEA N CHICKENPOX N ALLERGIES/HAYFEVER N INFECTIOUS DISEASE N PROSTATE N HEART ARRHYTHMIA N INSOMNIA N HIGH CHOLESTEROL / HYPERLIPIDEMIA Y EYE PROBLEMS N HYPERTHYROIDISM N EATING DISORDER N EDEMA N CHRONIC PAIN SYNDROME N CONSTIPATION N CAROTID BLOCKAGE N BACK / NECK PROBLEMS N HAVE YOU BEEN HOSPITALIZED OR SEEN IN [facility] IN THE PAST YEAR ? N ATHEROSCLEROSIS N BREAST PROBLEMS N DIALYSIS N ECZEMA N FIBROMYALGIA N OSTEOPOROSIS N ARTHRITIS Y NO SIGNIFICANT PAST MEDICAL HISTORY N APPENDICITIS N DIABETES, TYPE N BAD TEETH N HEARTBURN / REFLUX N ADD/ADHD N AUTISM SPECTRUM DISORDER (ASD) N HEPATITIS / LIVER DISEASE N PULMONARY DISEASE N GOUT N SLEEP DISORDER N ALZHEIMER'S DISEASE N PAIN N DEMENTIA N HERPES N SEIZURES/EPILEPSY N HEADACHES/MIGRAINES N VASCULAR DISEASE N PACEMAKER N DIZZINESS N HEART DISEASE/HEART PROBLEMS N KIDNEY DISEASE N SCARLET FEVER N MULTIPLE SCLEROSIS N DEVELOPMENTAL OR BEHAVIORAL DISORDERS Y MENTAL DISORDER/ILLNESS N CANCER: SPECIFY N CARDIAC ARRHYTHMIA N PNEUMONIA N ATRIAL FIBRILLATION N Gall Stones N PULMONARY EMBOLISM N AUTOIMMUNE DISEASE N Gynecological History Statement/Question Response If Post Menopausal, Age at Menopause 60 Date of Last Mammogram 11/09/2019 Date of Last Colonoscopy Most Recent Mammogram Most Recent Bone Density Obstetrics History GPAL:G 0 P 0 0 0 0 Immunizations Vaccine Type Date Status Note Provider Nam e and Address Organization Details Recorded Time Tdap 6 completed Not Available [facility] 05/12/2023 06:07:12 Influenza, split virus, quadrivalent, preservative 6 completed Not Available [facility] 05/12/2023 06:07:11 Influenza, high-dose, quadrivalent, PF 1 completed Not Available [facility] 05/12/2023 06:07:12 Influenza, high-dose, trivalent, PF 0 completed Not Available [facility] 05/12/2023 06:07:12 Influenza, high-dose, quadrivalent, PF 3 completed Tiki Barker RN null, [employer] 12/30/2022 11:57:34 pneumococcal polysaccharide PPV23 4 completed Daniel Hunter MD [address] [place] [address], [id number] [employer] 12/28/2023 15:18:15 Influenza, high-dose, trivalent, PF 4 completed Domitila Cee RN [facility], [employer] 03/28/2024 15:22:12 Past Encounters Encounter ID Performer Location Encounter Start Date Encounter Closed Date Diagnosis/Indication Diagnosis SNOMED-CT Code Diagnosis ICD10 Code Diagnosis Note [id number] Daniel Hunter MD [address] [address] 09/24/2020 00:00:00 09/24/2020 17:48:35 [id number] Daniel Hunter MD [address] [address] 1 01/09/2021 00:00:00 01/09/2021 09:35:33 [id number] Daniel Hunter MD [address] [address] 05/27/2021 00:00:00 05/27/2021 16:29:26 [id number] Daniel Hunter MD [address] [address] 1 09/24/2021 00:00:00 09/24/2021 12:40:08 [id number] Tiki Wisdom NP [address] [address] 07/01/2022 15:00:01 07/01/2022 15:51:16 Hyperlipidemia 94734770 E78.5 Ezetimibe 10 mg po daily. Anxiety 13798458 F41.9 Escitalopr am 20 mg po daily. Hypertensive disorder 38 103727 I10 Propranolo l 20 mg po bid. Heartburn 47632614 R12 Omeprazole 20 mg po daily. Tobacco user 650699519 Z 72.0 Cessation encouraged and recommende d. Osteoarthritis 983084495 M19.90 left shoulder. celecoxib 200 mg po daily. Parkinson's disease 4904 9000 G20 Carbidopa 25 mg- levodopa 100 mg po bid. Vitamin B1 2 deficiency (non anemic) 80039084 E53.8 Pain of le ft shoulder joint 8407650472 8149880 M25.512 referring to ortho. No trauma. NSAID not working. No time for pt. Gastroesop hageal reflux disease 246331266 K21.9 Omeprazole 40 mg Screening for malignant neoplasm of colon 768920208 Z12.11 Referring to Gastroente rologist. [id number] Tiki Wisdom NP [address] [address] 12/30/2022 10:56:32 12/30/2022 11:50:42 Adult health examination 825163490 Z00.00 Encouraged well balanced meals, active lifestyle, and routine vision and dental appts. Hyperlipidemia 83113026 E78.5 Ezetimibe 10 mg declined for patient.St atins cause joint painLipid panel. Anxiety 60419690 F41.9 Escitalopr am 20 mg po daily. Hypertensive disorder 38 630955 I10 Propranolo l 20 mg po bid. Heartburn 69438229 R12 Omeprazole 20 mg po daily. Tobacco user 894353932 Z 72.0 Cessation encouraged and recommende d. Osteoarthritis 652176223 M19.90 left shoulder. celecoxib 200 mg po daily. Parkinson's disease 4904 9000 G20 Monitoring symptoms. Medication dried hr out. Vitamin B1 2 deficiency (non anemic) 80892282 E53.8 Pain of le ft shoulder joint 1711371453 7316687 M25.512 Referring to ortho. No trauma. NSAID not working. No time for pt. Gastroesop hageal reflux disease 437048334 K21.9 Omeprazole 40 mg Screening for malignant neoplasm of colon 078958393 Z12.11 Referred to GI, but pt did not go. Cologuard ordered 12.30. Postmenopausal state 764 11428 Z78.0 Dexa needed. Administra tion of influenza vaccine 35736800 Z23 [id number] Daniel Hunter MD [address] [address] 06/15/2023 15:20:51 06/15/2023 17:06:50 Screening mammography 97644405 Z12.31 Screening for osteoporosis 150841060 Z13.820 Smoker 80309774 F17.200 Pain of le ft shoulder joint 1721549895 5709088 M25.512 Pain of le ft hip joint 4367335494 19119 M25.552 Osteoarthritis 901079935 M19.90 Depressive disorder 3548 9007 F32.A Anxiety disorder 6458347 06 F41.9 Gastroesop hageal reflux disease without esophagitis 384339332 K21.9 Essential tremor 8399145 09 G25.0 Hypertensive disorder 38 095193 I10 Obesity 673782839 E66.9 Adult [facility] th examination 054535917 Z00.00 Screening for disorder 148043642 Z13.9 [id number] Daniel Hunter MD [address] [address] 1 06/18/2023 11:33:08 06/18/2023 16:37:57 [id number] Daniel Hunter MD [address] [address] 1 10/04/2023 11:57:05 10/04/2023 12:49:36 Smoker 04233268 F17.200 Pain of le ft shoulder joint 0106549814 2928879 M25.512 Pain of le ft hip joint 3163224204 28146 M25.552 Osteoarthritis 745168927 M19.90 Depressive disorder 3548 9007 F32.A Anxiety disorder F41.9 Gastroesop hageal reflux disease without esophagitis 865045321 K21.9 Essential tremor 1618773 09 G25.0 Hypertensive disorder 38 986631 I10 Obesity 731998153 E66.9 Vitamin D deficiency 347 43472 E55.9 Hyperlipidemia 97684610 E78.5 Hypertriglyceridemia 302 255860 E78.2 [id number] Elvin Rebolledo MD [facility] [place] [address] [place] [address] 10/11/2023 09:40:05 10/11/2023 10:46:52 Pain of left shoulder joint 0476967134 2186325 M25.512 Pain of sh oulder region 49828445 M25.519 Osteoarthr itis of left glenohumeral joint 3711243618 618336 M19.365 [id number] Daniel Hunter MD [facility] [address] 11/15/2023 09:40:34 11/15/2023 10:23:47 Pain of left shoulder joint 1487983012 4849137 M25.512 Chronic Smoker 76457661 F17.200 Pain of le ft hip joint 5389615412 24574 M25.552 Chronic Osteoarthritis 225566214 M19.90 Depressive disorder 3548 9007 F32.A Anxiety disorder F41.9 Gastroesop hageal reflux disease without esophagitis 668907216 K21.9 Essential tremor 8438461 09 G25.0 Hypertensive disorder 38 690784 I10 Obesity 543946785 E66.9 Vitamin D deficiency 347 15594 E55.9 Hyperlipidemia 47630201 E78.5 Hypertriglyceridemia 302 750313 E78.2 Persistent sinus bradycardia 06664333 R00.1 [id number] Elvin Rebolledo MD [facility] [place] [address] [place] [address] 12/13/2023 09:46:11 12/13/2023 10:28:32 Osteoarthritis of left glenohumeral joint 7309760329 221251 M19.012 Pain of le ft shoulder joint 0439805184 9938837 M25.311 [id number] Daniel Hunter MD [address] [address] 12/28/2023 14:43:25 12/28/2023 15:21:23 Persistent sinus bradycardia 02787820 R00.1 Osteoarthritis 836087103 M19.90 Pain of le ft shoulder joint 0647667400 4349911 M25.512 Chronic Pain of le ft hip joint 1352238551 42854 M25.552 Chronic Smoker 83084076 F17.200 Depressive disorder 3548 9007 F32.A Anxiety disorder 4537693 06 F41.9 Gastroesop hageal reflux disease without esophagitis 827399255 K21.9 Essential tremor 9524533 09 G25.0 Hypertensive disorder 38 826642 I10 Obesity 570127713 E66.9 Vitamin D deficiency 347 08762 E55.9 Hyperlipidemia 59345846 E78.5 Hypertriglyceridemia 302 222630 E78.2 Active or passive immunization 908419607 Z23 [id number] Elvin Rebolledo MD [facility] [place] [address] [place] [address] 01/10/2024 11:24:51 01/10/2024 12:20:03 Osteoarthritis of left glenohumeral joint 0799294240 512204 M19.012 Pain of le ft shoulder joint 0591029550 7779662 M25.512 Trochanter ic bursitis of left hip 3096485426 20554 M70.62 [id number] Daniel Hunter MD [address] [address] 03/28/2024 14:33:26 03/28/2024 15:40:43 Osteoarthritis 838556496 M19.90 Persistent sinus bradycardia 21041891 R00.1 Pain of le ft shoulder joint 2765097948 0657839 M25.512 Chronic Pain of le ft hip joint 9147325327 65183 M25.552 Chronic Smoker 72692868 F17.200 Depressive disorder 3548 9007 F32.A Anxiety disorder F41.9 Gastroesop hageal reflux disease without esophagitis 049266868 K21.9 Essential tremor 4608791 09 G25.0 Hypertensive disorder 38 272265 I10 Obesity 279959511 E66.9 Vitamin D deficiency 347 64546 E55.9 Hyperlipidemia 47726719 E78.5 Hypertriglyceridemia 302 888792 E78.2 Administra tion of influenza vaccine 62304453 Z23 [id number] Elvin Rebolledo MD [facility] [place] [address] [place] [address] 06/23/2024 10:55:58 06/23/2024 11:30:13 Osteoarthritis of left glenohumeral joint 3976095850 454458 M19.012 Pain of le ft shoulder joint 7650846369 9669876 M25.512 Pain of le ft hip joint 7306664636 67487 M25.552 Trochanter ic bursitis of left hip 6745721050 67346 M70.62 [id number] Daniel Hunter MD [address] [address] 07/25/2024 11:55:37 07/25/2024 12:44:10 Depressive disorder 45386407 F32.A Anxiety disorder F41.9 Osteoarthritis 545926469 M19.90 Persistent sinus bradycardia 36404113 R00.1 Pain of le ft shoulder joint 8787001396 7938207 M25.512 Chronic Pain of le ft hip joint 6358796084 50141 M25.552 Chronic Smoker 39676051 F17.200 Gastroesop hageal reflux disease without esophagitis 523512677 K21.9 Essential tremor 9921222 09 G25.0 Hypertensive disorder 38 439531 I10 Obesity 559203329 E66.9 Vitamin D deficiency 347 91096 E55.9 Hyperlipidemia 45338491 E78.5 Hypertriglyceridemia 302 406104 E78.2 Screening mammography 24 122030 Z12.31 Effusion o f joint of right elbow 5099899147 30512 M25.421 Cigarette smoker 2801628 7 F17.956 [id number] Elvin Rebolledo MD [facility] [place] [address] [place] [address] 08/15/2024 13:46:22 08/15/2024 14:33:27 Pain of right elbow joint 0056220054 2355970 M25.521 Bursitis o f olecranon of right elbow 7999960921 35318 M70.21 [id number] Elvin Rebolledo MD [facility] [place] [address] [place] [address] 08/28/2024 09:02:43 08/28/2024 09:31:05 Pain of right elbow joint 6489893999 7820521 M25.521 Bursitis o f olecranon of right elbow 4405246399 53785 M70.21 [id number] Daniel Hunter MD [facility] [address] 08/28/2024 09:30:56 08/28/2024 09:54:44 [id number] Elvin Rebolledo MD [facility] [place] [address] [place] [address] 09/19/2024 14:41:31 09/19/2024 15:39:04 Trochanteric bursitis of left hip 9840791541 23958 M70.62 Pain of le ft hip joint 9227299309 65469 M25.552 Health Concerns Section Related Observation LastModified by Organization Detai ls LastModified Time None Recorded Concern Status LastModified by Organization Details LastModified Time None Recorded Advance Directives Directive N: Payers Insurance Date Sequence Insurance Name Policy Number Policy Pickard Covered Member ID Pickard Member ID Guarantor Name 06/21/2024 2 [place] [employer]MENT [place] [employer] Belkis Bradshaw [id number] Belkis Bradshaw 06/21/2024 1 [place] Belkis Bradshaw [id number] Belkis Bradshaw 06/21/2024 1 [facility] (MEDICARE - MEDICAID REPLACEMENT HMO) [id number] Belkis Bradshaw [id number] Belkis Bradshaw 06/21/2024 1 [facility] (MEDICARE REPLACEMENT/AD VANTAGE - HMO) [id number] Belkis Bradshaw [id number] Belkis Bradshaw 10/12/2024 1 [facility] (MEDICARE REPLACEMENT/AD VANTAGE - HMO) [id number] Belkis Bradshaw [id number] Belkis Bradshaw Notes Date Note Type Note Provider Name and Address Organization Details Recorded Time 07/25/2024 text/html Pt is here for h er annual exam. Doing overall well. Denies any problem with meds. C/o Rt elbow area swelling for last 1 week. Denies any recent fall/injury. No other area swelling. Pt is f/u with Cardio for her low hear rate and got more testing with them and all came back good as per pt. Pt sees them every 6 months. Pt is f/u with Ortho for her chronic Lt shoulder & Lt hip pain and got steroid shot with them. Doing overall well with her mood. Denies any mood swings/SI/HI. Pt says her BP is good at home. Whenever she is in doctor's office/hospital, its higher. Daniel Hunter MD [address], [place], [address], [employer] 07/25/2024 12:37:52 08/15/2024 text/html Patient returns with a new problem today. She has swelling over the right elbow it appears she has a fluid sac consistent with olecranon bursitis. Denies injury did not lean on it did not bump it as far she is aware. It has been ongoing for a few days now. It is tight and swollen she can not lean on the elbow because it is uncomfortable to do that. Prior to that she was not having any pain. She denies any erythema heat no signs of infection she has full range of motion that is comfortable denies any weakness or other issues. The skin is intact without drainage. Otherwise looks benign other than the golf ball-sized fluid sac. She comes in today for evaluation and treatment. KRYSTLE Nance [address], [place], [address], [employer] 08/15/2024 14:41:37 08/28/2024 text/html The patient retu rns for recheck of her right elbow. Two weeks ago she had a olecranon bursitis that was sterile in appearance no evidence of erythema heat or signs of infection. Really no pain or tenderness unless she leans on it. She denies any problems with the range of motion of the elbow otherwise it feels good. The skin is intact. Last time we had decompressed the sac nicely after aspirated 10 cc of bloody fluid. She was instructed to wear an Dylon wrap and she states within a couple of days the fluid returned. She continues to have no symptoms of infection no fevers chills night sweats no constitutional symptoms no erythema heat or drainage from the elbow. She comes in today for recheck to talk about what to do from here. KRYSTLE Nance [address], [place], [address], [employer] 08/28/2024 09:26:31 09/19/2024 text/html the patient retu rns with continuing left hip trochanteric pain. She has pain and tenderness due to trochanteric bursitis and chronic tendonitis here. Shot of cortisone 3 months ago gave her pretty good relief but her pain keeps coming back she has had multiple injections which just do not last. Her x-rays show reactive hypertrophic changes over the trochanteric region left hip. She does have pain with resisted abduction but strength is intact. She comes in today to talk about further treatment options. KRYSTLE Nance [address], [place], [address], [employer] 09/19/2024 15:18:15 OBGyn Episode No OBEpisode recorded.
--- OUTSIDE RECORDS SUMMARY | 2024-11-08 07:11 | XMS_ITS | Referral Summary ---
Author Organization [facility] [address] Address [address] [place] [address] Care Team Providers Care It Consulting Manager Name Role Phone Tiki Wisdom RESOURCE ENGINEER Primary Care Provider + Allergies No known active allergies Social History Tobacco Use Types Packs/Day Years Used Date Smoking Tobacco: Never Assessed Personal Safety Answer Date Recorded Getting School Help Needed Not on file 06/13 Comments Unknown Sex and Gender Information Value Date Recorded Sex Assigned at Not on file Legal Sex Female 12:02 AM [employer] Gender Identity Not on file Sexual Orientation Not on file Last Filed Vital Signs Vital Sign Reading Time Taken Comments Blood Pressure 157/78 08/16/2021 2:58 PM CDT Pulse 70 08/16/2021 2:58 PM CDT Temperature 36.1 C (97 F) 08/16/2021 2:58 PM CDT Respiratory Rate 18 08/16/2021 2:58 PM CDT Oxygen Saturation 97% 08/16/2021 2:58 PM CDT Inhaled Oxygen Concentration - - Weight 81.9 kg (180 lb 8.9 oz) 08/16/2021 2:58 PM CDT Height 162.6 cm (5' 4) 08/16/2021 2:58 PM CDT Body Mass Index 30.99 08/16/2021 2:58 PM CDT Plan of Treatment Not on file Insurance MEDICARE [facility] MEDICARE [employer] MEDICARE [id number] Care Teams It Consulting Manager Relationship Specialty Start Date End Date Tiki Wisdom NP PCP - General Nurse Practitioner 10/15/20
--- OUTSIDE RECORDS SUMMARY | 2024-11-08 07:11 | XMS_ITS | Encounter Summary ---
Author Organization [facility] Address [address] [place] [address] Care Team Providers Care Photographic Equipment Assembler Name Role Phone Unavailable Primary Care Provider Unavailabl e Encounter Details Date Type Department Care Team (Late st Contact Info) Description 06/20/2003 Outpatient Historical [facility] SMELLER - [address] [place] [address] Kevin Shaw MD [address] [place] [address] Social History Tobacco Use Types Packs/Day Years Used Date Smoking Tobacco: Never Assessed Comments Unknown Sex and Gender Information Value Date Recorded Sex Assigned at Not on file 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
--- OUTSIDE RECORDS SUMMARY | 2024-11-08 07:11 | XMS_ITS | Encounter Summary ---
Author Organization [facility] Address [address] [place] [address] Care Team Providers Care Mdm Sr Name Role Phone Unavailable Primary Care Provider Unavailabl e Encounter Details Date Type Department Care Team (Late st Contact Info) Description 10/07/2005 Outpatient Historical [facility] ACCOUNT PLANNER - [facility] 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
--- OUTSIDE RECORDS SUMMARY | 2024-11-08 07:11 | XMS_ITS | Clinical Summary ---
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 MEDICARE [employer] MEDICARE [id number] Care Teams Internet Marketing Assistant Relationship Specialty Start Date End Date Tiki Wisdom NP PCP - General Nurse Practitioner 10/15/20
--- OUTSIDE RECORDS SUMMARY | 2024-11-08 07:11 | XMS_ITS | Encounter Summary ---
Author Organization [facility] Address [address] [place] [address] Care Team Providers Care Nuclear Fuel Enrichment Technician Name Role Phone Unavailable Primary Care Provider Unavailabl e Encounter Details Date Type Department Care Team (Late st Contact Info) Description 07/05/2000 Outpatient Historical [facility] SAMPLE TAILOR - Medical [facility] [address] [facility] [address] [address] Solomon Lee MD [address] [place] [address] Social History Tobacco Use Types Packs/Day Years Used Date Smoking Tobacco: Never Assessed Comments Unknown Sex and Gender Information Value Date Recorded Sex Assigned at Not on file Legal Sex Female 3:10 AM DEVICE ENGINEER Gender Identity Not on file Sexual Orientation Not on file documented as of this encounter Plan of Treatment Not on file documented as of this encounter Visit Diagnoses Not on filedocumented in this encounter
--- OUTSIDE RECORDS SUMMARY | 2024-11-08 07:11 | XMS_ITS | Encounter Summary ---
Author Organization [facility] Address [address] [place] [address] Care Team Providers Care Clam Shucking Machine Tender Name Role Phone Unavailable Primary Care Provider Unavailabl e Encounter Details Date Type Department Care Team (Late st Contact Info) Description 06/15/2000 Outpatient Historical [facility] MANAGER LANDSCAPE - Medical [facility] [address] [facility] [address] [address] Solomon Lee MD [address] [place] [address] Social History Tobacco Use Types Packs/Day Years Used Date Smoking Tobacco: Never Assessed Comments Unknown Sex and Gender Information Value Date Recorded Sex Assigned at Not on file Legal Sex Female 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
== END 2024-11-08 07:08 | disposition home or self-care (01) ==
PROVIDERS: Visit Provider Physician Assistant Surgical
DX: M70.62 Trochanteric bursitis, left hip (principal); M16.12 Unilateral primary osteoarthritis, left hip
CPT/HCPCS: 73721

== ENCOUNTER 2025-02-08 11:31 | Emergency (ER) | payer MEDICARE, SELFPAY ==
--- NOTE | ~2025-02-08 | XR_ITS ---
EXAMINATION: XR ribs RT 2V w CXR 2V, 02/08/2025 11:48 CDT HISTORY: right upper back pain with deep breathing COMPARISON: No comparisons available. Findings: No acute fracture or malalignment. No significant degenerative changes. Soft tissues unremarkable. Impression: No acute fracture or malalignment. Reviewed, dictated and finalized at location P. Impression: No acute fracture or malalignment.
[2025-02-08 11:38] VITALS: BP 125/74; PULSE 78; RESP 18; TEMP 36.6; O2SAT 97
--- NOTE | 2025-02-08 11:44 | ED.BACK ---
HPI - Back Pain/Injury General Chief Complaint: Back Pain/Injury Stated Complaint: Back Soreness Time Seen by Provider: 02/08/25 11:48 Source: patient and RN notes reviewed Mode of arrival: ambulatory Limitations: no limitations History of Present Illness HPI Narrative: 74 year old female presents with concern for right upper back pain. She only has pain when she takes a deep breath. She denies injury or trauma. Denies cough or SOB. Denies URI symptoms. Denies rash. Denies fever, aches, chills, sweats. MD elicited complaint: back pain Related Data Home Medications ?Medication ?Instructions ?Recorded ?Confirmed ?Last Taken ?Type carbidopa 25 mg-levodopa 100 mg 1 tablet PO DAILY 08/15/21 02/08/25 Unknown History tablet escitalopram oxalate 20 mg tablet 20 mg PO DAILY 08/15/21 02/08/25 Unknown History ezetimibe 10 mg tablet 10 mg PO DAILY 08/15/21 02/08/25 Unknown History omeprazole 20 mg capsule,delayed 20 mg PO DAILY 08/15/21 02/08/25 Unknown History release propranolol 20 mg tablet 20 mg PO DAILY 08/15/21 02/08/25 Unknown History Allergies Allergy/AdvReac Type Severity Reaction Status Date / Time amoxicillin Allergy Severe Anaphylactic Verified 02/08/25 11:39 Shock sulfamethoxazole (From Allergy Unknown Verified 02/08/25 11:39 Bactrim) trimethoprim (From Bactrim) Allergy Unknown Verified 02/08/25 11:39 Review of Systems Review of Systems: CONSTITUTIONAL: Denies malaise, chills, sweats, or fever. CARDIOVASCULAR: Denies chest pain, palpitations, or edema. RESPIRATORY: Denies cough or dyspnea. GASTROINTESTINAL: Denies abdominal pain, nausea, vomiting, diarrhea, loss of bowel function GENITOURINARY: Denies dysuria, hematuria, frequency, loss of bladder function. SKIN: Denies rash or itching. MUSCULOSKELETAL: Reports right upper back pain NEUROLOGIC: Denies numbness, weakness, or headache. All systems reviewed & are unremarkable except as noted in HPI and below PMFSH Past Medical History Medical History Arthritis Depression History of gastroesophageal reflux (GERD) Hyperlipidemia Surgical History Surgical History History of cholecystectomy Social History Social History Gender identity (if verbalized by the patient): Female Comments At time of signature, agree with nursing past medical, surgical, social and family history. There is no relevant family history pertinent to the presenting complaint Exam Narrative: GENERAL: Well-appearing, well-nourished, and in no acute distress. HEAD: Normocephalic, atraumatic. EYES: PERRLA and EOMI. NECK: Supple. No lymphadenopathy. CHEST: Clear to auscultation. No respiratory distress. HEART: Regular rate and rhythm. Distal pulses palpable and equal, cap refill <3 seconds ABDOMEN: Soft, nontender, nondistended, normal active bowel sounds, no palpable or pulsatile masses. No CVA tenderness MUSCULOSKELETAL: Normal range of motion and strength in all extremities; 5/5 strength with hip flexion and extension, dorsiflexion and extension, knee flexion and extension, plantar flexion and extension. Normal sensation in dermatomal distributions with sensitivity to light touch and pain. No midline back tenderness to palpation. No paraspinal tenderness. Transfers from lying to sitting to standing. SKIN: Warm, dry, no rash. No ecchymosis, erythema, open wounds to back. NEURO: No focal deficits. Alert and oriented x3. Reflexes intact. Normal gait. PSYCH: Normal mood and affect Course Course Emergency Course: Patient is aware of diagnosis, understands and agrees to treatment plan. Anticipatory guidance given. Patient agrees to follow-up as directed and is aware of reasons to seek care at the emergency department. Portions of this record may have been created with voice recognition software Level of Care: Express Care Visit Vital Signs Vital signs: Vital Signs Temperature 97.8 F 02/08/25 11:38 Pulse Rate 78 02/08/25 11:38 Respiratory Rate 18 02/08/25 11:38 Blood Pressure 125/74 02/08/25 11:38 Pulse Oximetry 97 02/08/25 11:38 Oxygen Delivery Room Air 02/08/25 11:38 Temperature 97.8 F 02/08/25 11:38 Pulse Rate 78 02/08/25 11:38 Respiratory Rate 18 02/08/25 11:38 Blood Pressure 125/74 02/08/25 11:38 Pulse Oximetry 97 02/08/25 11:38 Oxygen Delivery Room Air 02/08/25 11:38 Reviewed. MDM - Back Pain/Injury MDM Narrative Medical decision making narrative: I evaluated this in the [facility] care. History is obtained from patient who is an independent historian and physical exam was performed.? Available medical records were reviewed. ? Exam findings and relevant testing show no acute concerns or changes; patient is non-toxic appearing and is in no distress. No risk factors or findings concerning for epidural abscess, diskitis, vertebral osteomyelitis, cord compression, cauda equina, vertebral fracture or bone malignancy, AAA, or pyelonephritis. Patient instructed to consider further imaging and workup through their primary care physician as an outpatient if symptoms persist. ? Differential diagnosis and treatment plan were discussed with the patient. Patient agrees with discussion and after shared medical decision making agrees with plan of care. All questions were answered to the patient's satisfaction. Patient is appropriate for outpatient treatment and follow-up. Imaging Data My impression: Images reviewed, interpreted by radiologist, agree, see report. Radiologist's impression: ADDENDUM Additional images were obtained of the right ribs, there is no fracture identified EXAMINATION: XR ribs RT 2V w CXR 2V, 02/08/2025 11:48 CDT HISTORY: right upper back pain with deep breathing COMPARISON: No comparisons available. Findings: No acute fracture or malalignment. No significant degenerative changes. Soft tissues unremarkable. Impression: No acute fracture or malalignment. Critical Care Time Critical Care Time Critical Care Time: No Discharge Plan Discharge Clinical Impression: Acute upper back pain Patient Disposition: Home Condition: Stable Instructions: Back Pain (ED) Additional Instructions: Please follow up with your Primary Care Doctor within 48-72 hours - call for an appointment. Walking and other gentle exercising several times a week has been shown to improve back pain; bed rest is not recommended. Take Motrin 600mg every 6-8 hours with food for the next 2-3 days. You may apply heat or cold to the area as needed. If you experience any worsening pain, swelling, numbness, weakness please go to ER. Contact your doctor or go to the emergency department if you develop problems with bladder or bowel function, weakness or loss of feeling in one or both of your legs, or any other serious concerns. Patient Language: Turkmen Prescriptions: No Action omeprazole 20 mg capsule,delayed release(DR/EC) 20 mg PO DAILY propranolol 20 mg tablet 20 mg PO DAILY carbidopa-levodopa 25-100 mg tablet 1 tablet PO DAILY escitalopram oxalate 20 mg tablet 20 mg PO DAILY ezetimibe 10 mg tablet 10 mg PO DAILY Follow-up/Referrals: Dale,MD Daniel [Primary Care Provider, Unknown] Time of Disposition: 12:35
== END 2025-02-08 12:37 | disposition home or self-care (01) ==
PROVIDERS: Emergency Provider Nurse Practitioner; PCP Family Medicine
DX: M54.6 Pain in thoracic spine (principal); E78.5 Hyperlipidemia, unspecified; K21.9 Gastro-esophageal reflux disease without esophagitis; M19.90 Unspecified osteoarthritis, unspecified site; F32.A Depression, unspecified
CPT/HCPCS: 71046; 71100; 99213; G0463

== ENCOUNTER 2025-04-05 10:50 | Outpatient (CLI) | payer MEDICARE, SELFPAY ==
--- NOTE | ~2025-04-05 | MR_ITS ---
EXAM/PROCEDURE: MR lumbar spine wo con HISTORY: PAIN IN SACROILIAC COMPARISON: None available. TECHNIQUE: Lumbar spine MRI without contrast FINDINGS: Degenerative changes present throughout the lumbar spine involving disc spaces and posterior elements. No acute or aggressive bony or soft tissue process seen. The conus tapers level at the level of L1-2 interspace. Level specific findings as follows: T12-L1: Mild degenerative change L1-2: Moderate degenerative disc and facet changes with small amounts of fluid in the facet joints, and mild to moderate bilateral neural foraminal narrowing. No spinal canal stenosis or discrete disc protrusion. L2-3: More advanced facet hyperostosis and thickening of ligamentum flavum with borderline stenosis in the lateral recesses. No spinal canal stenosis or discrete disc protrusion. Mild to moderate bilateral neural foraminal narrowing right worse than left. L3-4: More significant thickening of ligamentum flavum and facet hypertrophy results in borderline spinal canal stenosis. No discrete disc protrusion. Mild to moderate bilateral neural foraminal narrowing. No severe stenosis in the lateral recesses. L4-5: Severe thickening of ligamentum flavum with facet hyperostosis and moderately severe posterior disc bulging/spondylosis results in moderate to severe spinal canal stenosis. No discrete disc protrusion. Moderate bilateral neural foraminal narrowing. L5-S1: Milder degenerative disc and facet changes results in borderline spinal canal stenosis. Probably mild stenosis in the right lateral recess. No discrete disc protrusion. Moderately severe bilateral neural foraminal narrowing. IMPRESSION: Multilevel degenerative changes most advanced at L4-5 and L5-S1 with moderate to severe spinal canal stenosis at L4-5. See level specific details as above. Reviewed, dictated and finalized at location A. 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 See level specific details as above.
--- OUTSIDE RECORDS SUMMARY | 2025-04-05 12:08 | XMS_ITS | Clinical Summary ---
Author Organization [facility] Address [address] [facility] Attn: Epic Prelude ADT [place] [address] Care Team Providers Care Automobile Rental Representative Name Role Phone Unavailable Primary Care Provider Unavailabl e Social History Tobacco Use Types Packs/Day Years Used Date Smoking Tobacco: Never Assessed Comments Unknown Sex and Gender Information Value Date Recorded Sex Assigned at Not on file Legal Sex Female 3:10 AM RX SPECIALIST Gender Identity Not on file Sexual Orientation Not on file Plan of Treatment Health Maintenance Due Date Last Done Comments BREAST CANCER SCREENING 1992 COLORECTAL SCREENING 1997 Colorectal Cancer Screening 1997 FIT-DNA Q 3 years 1997 FIT/FOBT Q 1 year 1997 Flex Sig/CT Colonography Q 5 years 1997 ZOSTER VACCINE (1 of 2) 2002 OSTEOPOROSIS SCREENING 2017 06/25/2003 INFLUENZA VACCINE (#1) 2024 , 12/30/2022, 01/09/2021, Additional history exists PNEUMOCOCCAL VACCINE 50+ YEA RS (2 of 2 - PCV) 12/27/2024 12/28/2023 DTAP/TDAP/TD VACCINES (2 - T d or Tdap) 04/19/2025 04/19/2015 RSV VACCINE (60+ or ) (1 - 1-dose 75+ series) 09/21/2027 Procedures Procedure Name Priority Date/Time Associated Diagnosis Comments XR DEXA BONE DENSITY 2 SITES Routine 06/25/2003 from Last 3 Months or Most Recently Relevant to Health Maintenance Results * XR DEXA BONE DENSITY 2 SITES (06/25/2003) T-SCORE HEEL LEIA AMB EXTERNAL RADIOLOGY Anatomical Region Laterality Modality Other us Solomon Lee MD DIAGNOSTIC IMAGING ORDERABLES Fi nal Result from Last 3 Months or Most Recently Relevant to Health Maintenance
--- OUTSIDE RECORDS SUMMARY | 2025-04-05 12:08 | XMS_ITS | Encounter Summary ---
Author Organization [facility] Address [address] [place] [address] Care Team Providers Care Manager Photography Name Role Phone Unavailable Primary Care Provider Unavailabl e Encounter Details Date Type Department Care Team (Late st Contact Info) Description 07/05/2000 Outpatient Historical [facility] OFFICE SUPPORT ASSISTANT - Medical [facility] [phone] [facility] [address] [address] Solomon Lee MD [address] [place] [address] Social History Tobacco Use Types Packs/Day Years Used Date Smoking Tobacco: Never Assessed Comments Unknown Sex and Gender Information Value Date Recorded Sex Assigned at Not on file 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
--- OUTSIDE RECORDS SUMMARY | 2025-04-05 12:08 | XMS_ITS | Clinical Summary ---
Author Organization [facility] [address] Address [address] [place] [address] Care Team Providers Care Chin Strap Sewer Name Role Phone Tiki Wisdom LAMINATING MACHINE OPERATOR Primary Care Provider + Allergies No known active allergies Social History Tobacco Use Types Packs/Day Years Used Date Smoking Tobacco: Never Assessed Personal Safety Answer Date Recorded Getting School Help Needed Not on file 06/13 Comments Unknown Sex and Gender Information Value Date Recorded Sex Assigned at Not on file Legal Sex Female 12:02 AM DIESEL ROLLER OPERATOR Gender Identity Not on file Sexual Orientation [...] of Treatment Not on file Insurance MEDICARE [facility] MEDICARE [employer] MEDICARE [id number] Care Teams Chin Strap Sewer Relationship Specialty Start Date End Date Tiki Wisdmo NP PCP - General Nurse Practitioner 10/15/20
--- OUTSIDE RECORDS SUMMARY | 2025-04-05 12:08 | XMS_ITS | Encounter Summary ---
Author Organization [facility] Address [address] [place] [address] Care Team Providers Care Supervisor Tree Trimming Name Role Phone Unavailable Primary Care Provider Unavailabl e Encounter Details Date Type Department Care Team (Late st Contact Info) Description 06/15/2000 Outpatient Historical [facility] INVESTIGATIVE ANALYST - Medical [facility] [phone] [facility] [address] [address] Solomon Lee MD [address] [place] [address] Social History Tobacco Use Types Packs/Day Years Used Date Smoking Tobacco: Never Assessed Comments Unknown Sex and Gender Information Value Date Recorded Sex Assigned at Not on file Legal Sex Female 3:10 AM ENERGY EFFICIENCY SPECIALIST Gender Identity Not on file Sexual Orientation Not on file documented as of this encounter Plan of Treatment Not on file documented as of this encounter Visit Diagnoses Not on filedocumented in this encounter
--- OUTSIDE RECORDS SUMMARY | 2025-04-05 12:08 | XMS_ITS | Encounter Summary ---
Author Organization [facility] Address [address] [facility] Attn: Epic Prelude ADT [place] [address] Care Team Providers Care Director Of Logistics Name Role Phone Unavailable Primary Care Provider Unavailabl e Encounter Details Date Type Department Care Team (Late st Contact Info) Description 09/02/1995 Outpatient Historical [facility] Social History Tobacco Use Types Packs/Day Years Used Date Smoking Tobacco: Never Assessed Comments Unknown Sex and Gender Information Value Date Recorded Sex Assigned at Not on file Legal Sex Female 3:10 AM RESPIRATORY CARE PROGRAM DIRECTOR Gender Identity Not on file Sexual Orientation Not on file documented as of this encounter Plan of Treatment Not on file documented as of this encounter Visit Diagnoses Not on filedocumented in this encounter
--- OUTSIDE RECORDS SUMMARY | 2025-04-05 12:08 | XMS_ITS | Clinical Summary ---
Author Organization [facility] [employer] Address [address] [place] [address] Care Team Providers Care Circulator Name Role Phone Daniel Hunter MD Primary Care Provider [phone] Source Comments [facility],non-owned Affiliates and Associated Physician Practices is amultiple site organization consisting of ambulatory clinics and hospital sitesin [place], [place], [place] and [place]. This disclosure is being madepursuant to the Care Everywhere program and may not contain all information available regarding this patient. Last updated 18.[facility] [employer] Allergies Active Allergy Reactions Criticality Noted Date Comments Amoxicillin Anaphylaxis High 10/12/2020 Patient went unconscious Sulfamethoxazole W-Trimethoprim Other Medium 01/04/2025 Medications * Be aware that medications may not be up to date on this document. Alwaysverify current medications with the patient. ALPRAZolam (Xanax) 0.25 MG tablet Take 1 (one) tablet by mouth once daily as needed 4 Active escitalopram (Lexapro) 20 MG tablet Take 1 (one) tablet by mouth once daily 4 Active omeprazole (PriLOSEC) 40 MG capsule TAKE 1 CAPSULE BY MOUTH EVERY DAY IN THE MORNING 4 Active primidone (Mysoline) 50 MG tablet TAKE 2 TABLETS BY MOUTH TWICE DAILY 120 tablet 2 5 Active nicotine (Nicoderm CQ) 14 MG/24HR patch APPLY 1 PATCH TOPICALLY TO THE SKIN EVERY DAY AND REMOVE OLD PATCH 5 Active valsartan (Diovan) 160 MG tablet Take 1 (one) tablet by mouth once daily 5 Active theophylline CR 12hr (Theodur) 300 MG tablet Take 1 (one) tablet by mouth once daily 5 Active fenofibrate (Lofibra) 54 MG tablet Take 1 (one) tablet by mouth every morning 5 Active amLODIPine (Norvasc) 5 MG tablet 5 Active Vascepa 1 g capsule Take 2 (two) capsules by mouth 2 times daily 4 Active vitamin D, ergocalciferol, (Drisdol) 1.25 MG (03609 UT) capsule TAKE 1 CAPSULE BY MOUTH EVERY WEEK DIRECTED 5 Active rosuvastatin (Crestor) 10 MG tablet Take 1 (one) tablet by mouth 5 Active gabapentin (Neurontin) 100 MG capsule TAKE 2 CAPSULES BY MOUTH THREE TIMES DAILY DIRECTED 5 Active aspirin (Aspirin) 81 MG chew tablet Take 1 (one) tablet by mouth 2 times daily (chew and swallow) Active Active Problems Problem Noted Date Diagnosed Date Fibromyalgia syndrome/centra l pain sensitization disorder/amplified musculoskeletal pain 01/04/2025 Assessment & Plan (01/04/2025 3:57 PM CDT): Multiple soft tissue tender points suggestive of allodynia with >11/18 positive fibromyalgia tender points noted. I discussed the approach to the clinical diagnosis of a fibromyalgia syndrome as a cause for chronic musculoskeletal pain. Encourage to consider PCP to transition from escitalopram to duloxetine that may provide pain relief. I do not provide long-term care for the treatment of fibromyalgia and I have suggested that Belkis Bradshaw follow-up with her primary care provider/physician for any additional needed long-term treatment approach recommendations that may be of benefit for relief of symptoms related to this non-inflammatory hypersensitivity pain disorder. I strongly encourage the avoidance of opiate analgesic medication (narcotics), as well as benzodiazepines, in the treatment of fibromyalgia associated pain given their potential risk for serious side effects and/or dependency issues and opiate induced hyperalgesia (use of assisted opiate/narcotic actually causing more pain rather than less) that can be associated with such use. I would also strongly encourage non pharmacologic interventions, including working with a pain psychologist trained in cognitive behavioral therapy such is relaxation techniques, biofeedback and visual imagery that can also be helpful, as well as aerobic conditioning exercise in the treatment of this type of non-inflammatory chronic pain condition. Belkis Bradshaw was provided additional written information regarding fibromyalgia for further educational information. Fibromyalgia is a painful condition that is not completely understood by medical experts. The cause of fibromyalgia is not known. A person may feel tired and ache all over. It causes tender spots on the body that hurt only when pressed upon. A patient may have trouble sleeping, as well as other symptoms. These problems can upset work and home life. Symptoms tend to come and go, although they may never go away completely. Fibromyalgia does not harm the muscles, joints or organs or cause any permanent deformity or disability in the body. Fibromyalgia syndrome is characterized by generalized noninflammatory pain and is associated with long-standing pain that may come and go and be variable or at time persistently contant. The pain may be located in the soft tissues including tendons or muscles or joints. The pain can occur in any of the extremities and also be felt along the spine or torso. This is the reason some people feel that they have arthritis. Other unusual symptoms that may suggest an underlying neurologic disorder have also been described in patients with fibromyalgia including numbness and tingling type sensations and shooting pains. Patients often describe fatigue and may awaken with non restorative sleep quality. The condition can occur in men or women in any age but is most common in women routine the ages of 20 in 50. There is no specific test used that can confirm the diagnosis of fibromyalgia and is considered a diagnosis of exclusion where by other conditions need to be excluded and this may or may not require additional test to be performed. The current nature of fibromyalgia seems to suggest that this syndrome represents a disorder of increased sensitivity in pain perception or so-called central pain amplification. Unfortunately, the exact cause of this disorder still remains elusive and unknown and limits the treatment to symptom relief without any known cure at this time. Encounters Date Type Department Care Team Description 01/04/2025 3:20 PM CDT Office Visit [facility] - Rheumatology [address] [place] [address], [address] [place] [address] Jonny Bobby, DO Fibromyalgia syndrome/central pain sensitization disorder/amplified musculoskeletal pain (Primary Dx) from Last 3 Months Social History Tobacco Use Types Packs/Day Years Used Date Smoking Tobacco: Never Assessed PHQ-2 Answer Date Recorded Patient Health Questionnaire-2 Score 0 01/04/2025 Comments Unknown Sex and Gender Information Value Date Recorded Sex Assigned at Not on file Legal Sex Female 5:52 AM MARKETING COPYWRITER Gender Identity Not on file Sexual Orientation Not on file Last Filed Vital Signs Vital Sign Reading Time Taken Comments Blood Pressure 120/64 01/04/2025 3:10 PM CDT Pulse 64 01/04/2025 3:10 PM CDT Temperature 36.1 C (97 F) 01/04/2025 3:10 PM CDT Respiratory Rate 16 01/04/2025 3:10 PM CDT Oxygen Saturation 94% 01/04/2025 3:10 PM CDT Inhaled Oxygen Concentration - - Weight 85.3 kg (188 lb) 01/04/2025 3:10 PM CDT Height 162.6 cm (5' 4) 09/07/2023 11:32 AM CDT Body Mass Index 32.27 09/07/2023 11:32 AM CDT Plan of Treatment [...] 2002 ZOSTER VACCINE (1 of 2) 2002 MEDICARE AWV CALENDAR YEAR 2024 COVID-19 VACCINE (1 - 2024-2 6 season) 2024 INFLUENZA VACCINE (#1) 2024 0, 04/19/2015 COLOGUARD (AGES 45-75) - COL ON CA SCREENING 01/11/2026 01/11/2023 Colorectal Cancer Screening 01/11/2026 Respiratory Syncytial Virus (RSV) Vaccine Pt: or over 60 yrs (1 - 1-dose 75+ series) 09/21/2027 DEPRESSION SCREENING Completed 01/04/2025 HEPATITIS B VACCINE Aged Out No longe [...] on patient's age to complete this topic Insurance [facility] Care Teams Circulator Relationship Specialty Start Date End Date Daniel Hunter MD [address] [place] [address] PCP - General Family Medicine 07/06/23
--- OUTSIDE RECORDS SUMMARY | 2025-04-05 12:08 | XMS_ITS | Encounter Summary ---
Author Organization [facility] Address [address] [place] [address] Care Team Providers Care Institution Director Name Role Phone Unavailable Primary Care Provider Unavailabl e Encounter Details Date Type Department Care Team (Late st Contact Info) Description 06/20/2003 Outpatient Historical [facility] PROJECT MANAGEMENT CONSULTANT - [address] [place] [id number] Kevin Shaw MD [address] [place] [address] Social History Tobacco Use Types Packs/Day Years Used Date Smoking Tobacco: Never Assessed Comments Unknown Sex and Gender Information Value Date Recorded Sex Assigned at Not on file Legal Sex Female 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
--- OUTSIDE RECORDS SUMMARY | 2025-04-05 12:08 | XMS_ITS | Encounter Summary ---
Author Organization [facility] Address [address] [place] [address] Care Team Providers Care Market President Name Role Phone Unavailable Primary Care Provider Unavailkeren e Encounter Details Date Type Department Care Team (Late st Contact Info) Description 05/25/2000 Emergency [facility] Solomon Deng MD NO ADDRESS ON FILE Er, Authorized P NO ADDRESS ON FILE Contusion of multiple sites, not elsewhere classified (Primary Dx) Social History Tobacco Use Types Packs/Day Years Used Date Smoking Tobacco: Never Assessed Comments Unknown Sex and Gender Information Value Date Recorded Sex Assigned at Not on file Legal Sex Female 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
--- OUTSIDE RECORDS SUMMARY | 2025-04-05 12:08 | XMS_ITS | Encounter Summary ---
Author Organization [facility] Address [address] [place] [address] Care Team Providers Care Primary Substance Abuse Counselor Name Role Phone Unavailable Primary Care Provider Unavailabl e Encounter Details Date Type Department Care Team (Late st Contact Info) Description 10/07/2005 Outpatient Historical [facility] [employer] ATTENDANT - [facility] [address] [place] [address] Víctor Allen MD [id number] [address] Social History Tobacco Use Types Packs/Day Years Used Date Smoking Tobacco: Never Assessed Comments Unknown Sex and Gender Information Value Date Recorded Sex Assigned at Not on file Legal Sex Female 3:10 AM [employer] Gender Identity Not on file Sexual Orientation Not on file documented as of this encounter Plan of Treatment Not on file documented as of this encounter Visit Diagnoses Not on filedocumented in this encounter
== END 2025-04-05 10:51 | disposition home or self-care (01) ==
LOC: ANHIMG 10:52
PROVIDERS: PCP Family Medicine; Visit Provider Physician Assistant Surgical
DX: M51.35 Other intervertebral disc degeneration, thoracolumbar region (principal); M48.061 Spinal stenosis, lumbar region without neurogenic claudication; M48.07 Spinal stenosis, lumbosacral region; M53.3 Sacrococcygeal disorders, not elsewhere classified
CPT/HCPCS: 72148